=== PATIENT | male | born 1950 | race Caucasian/White ===

== ENCOUNTER → 2016-06-28 | Outpatient (CLI) | payer OTHER ==
--- NOTE | 2016-06-28 12:58 | CR ---
EXAMINATION: Right knee HISTORY: Pain COMPARISON: None TECHNIQUE: 4 views FINDINGS: There is moderate joint space narrowing within the lateral compartment. Moderate osteophyt e formation is noted. No fracture or acute osseous abnormality is demonstrated. There is a small gilson nt effusion noted. IMPRESSION: Moderate degenerative changes noted most prominent within the lateral compartment.
== END | disposition home or self-care (01) ==
LOC: MW.CHORTHO 11:10
PROVIDERS: ATTEND Orthopaedic Surgery
DX: M25.561 Pain in right knee (principal)
CPT/HCPCS: 73564-26-RT; 73564-RT

== ENCOUNTER 2017-04-01 10:07 | Day surgery (SDC) | payer OTHER ==
[~2017-04-01 10:07] MED LIST: Acetaminophen 1,000 MG in Premix Bag 1 BAG IV SCH; Famotidine 20 MG/2 ML SDV IVPUSH SCH; Ketorolac 30 MG/ML SDV IVPUSH SCH; Lidocaine 2% 5 ML SDV ONE; Midazolam 1 MG/ML 2 ML SDV ONE; Propofol 200 MG/20 ML SDV ONE; Ropivacaine 49.25 ML, Ketorolac 30 MG, EPINEPHrine 0.5 MG, cloNIDine 80 MCG in Sodium C... INJECT ONE; Scopolamine 1.5 MG Transdermal Patch TRDERM SCH; ceFAZolin 2 GM in Premix Bag 1 BAG IV SCH; fentaNYL 100 MCG/2 ML SDV ONE; oxyCODONE ER 20 MG TAB.ER PO SCH
[2017-04-01] MEDS: Lactated Ringers 1,000 ML IV SCH ×2 (10:47→14:45)
--- NOTE | 2017-04-01 10:58 | PCM.PREANE ---
Preanesthetic Assessment - Anesthesia/Transfusion/Family Hx Anesthesia History: Prior Anesthesia Without Reaction Family History of Anesthesia Reaction: No Transfusion History: No Prior Transfusion(s) - Review of Systems General: No Symptoms Pulmonary: No Symptoms Cardiovascular: No Symptoms Neurological: Other (dystonic movement disorder) Other: Reports: Depression - Physical Assessment NPO Status Date: 03/31/17 O2 Sat by Pulse Oximetry: 98 Respiratory Rate: 16 Vital Signs: Last Vital Signs Temp 36.2 C 04/01/17 10:29 Pulse 72 04/01/17 10:29 Resp 16 04/01/17 10:29 BP 108/72 04/01/17 10:29 Pulse Ox 98 04/01/17 10:29 Height: 1.78 m Weight: 79.832 kg ASA Class: 3 Mental Status: Alert & Oriented x3 Airway Class: Mallampati = 1 Dentition: Reports: Normal Dentition ROM/Head Extension: Full Lungs: Clear to Auscultation, Normal Respiratory Effort Cardiovascular: Regular Rate, Regular Rhythm - Allergies Allergies/Adverse Reactions: Allergies Allergy/AdvReac Type Severity Reaction Status Date / Time Sulfa (Sulfonamide Allergy Anaphylactic Verified 03/29/17 10:08 Antibiotics) Shock - Blood Blood Available: Yes - Acknowledgements Anesthesia Type Planned: Spinal Pt an Appropriate Candidate for the Planned Anesthesia: Yes Alternatives and Risks of Anesthesia Discussed w Pt/Guardian: Yes Pt/Guardian Understands and Agrees with Anesthesia Plan: Yes Additional Comments: PMH: alcoholism, dry for 3 months, GERD without sx when on meds, HTN, dystonic movement disorder. PreAnesthesia Questionnaire HEENT History: Reports: Cataract, Macular Degeneration Other HEENT History: wears glasses, has had "shots" in left eye for Macular Degeneration Cardiovascular History: Reports: High Cholesterol, Hypertension Respiratory History: Reports: None Gastrointestinal History: Reports: Chronic Constipation, GERD Other Gastrointestinal History: hx colitis Genitourinary History: Reports: Prostate Disorder Musculoskeletal History: Reports: Arthritis, Fracture Other Musculoskeletal History: hx of fx of right pinky Neurological History: Reports: Seizure, Other (See Below) Other Neuro History: hx of motion sickness, has involuntary movements, hx of seizure 15 years ago after being hospitalized for DT's Psychiatric History: Reports: Anxiety, Depression, PTSD Endocrine/Metabolic History: Reports: None Hematologic History: Reports: None Immunologic History: Reports: None Oncologic (Cancer) History: Reports: None Dermatologic History: Reports: None - Past Surgical History Head Surgeries/Procedures: Reports: None HEENT Surgical History: Reports: Cataract Surgery, Oral Surgery Other HEENT Surgeries/Procedures: has dental posts GI Surgical History: Reports: Colonoscopy Male Surgical History: Reports: Vasectomy Musculoskeletal Surgical History: Reports: Arthroscopic Knee Other Musculoskeletal Surgeries/Procedures:: bilateral - SUBSTANCE USE Smoking Status *Q: Former Smoker Tobacco Use Within Last Twelve Months: No Second Hand Smoke Exposure: No Days Per Week of Alcohol Use: 0 Number of Drinks Per Day: 20 Total Drinks Per Week: 0 Recreational Drug Use History: No Recreational Drug Type: Reports: Other (see below) - HOME MEDS Home Medications: Home Meds Omeprazole [priLOSEC OTC] 40 mg PO BID 03/22/14 [History] PARoxetine [Paxil] 40 mg PO BID 03/22/14 [History] Simvastatin [Zocor] 80 mg PO BEDTIME 03/22/14 [History] Testosterone [Androgel] 1 dose TOP BEDTIME 04/26/14 [History] Doxazosin [Cardura] 2 mg PO DAILY 12/23/15 [History] Docosahexanoic Acid [ Dha] 1 cap PO DAILY 03/29/17 [History] Meloxicam 15 mg PO DAILY 03/29/17 [History] Polyethylene Glycol 3350 1 gm PO DAILY PRN 03/29/17 [History] Vitamin B Complex 1 cap PO DAILY 03/29/17 [History] clonazePAM [Klonopin] 0.5 mg PO BID 03/29/17 [History] - CURRENT (IN HOUSE) MEDS Current Meds: Current Medications Famotidine (Pepcid) 40 mg IVPUSH ONARRIVE [facility] Last Admin: 04/01/17 10:48 Dose: 40 mg Cefazolin Sodium/Dextrose 2 gm (/ Premix) 50 mls @ 100 mls/hr IV ONCALL BRIANA Lactated Ringer's (Ringers, Lactated) 1,000 mls @ 100 mls/hr IV ASDIRECTED [facility] Last Admin: 04/01/17 10:47 Dose: 100 mls/hr Acetaminophen 1,000 mg/ Premix 100 mls @ 400 mls/hr IV ONCALL [facility] Last Admin: 04/01/17 10:50 Dose: 400 mls/hr Ketorolac Tromethamine (Toradol) 30 mg IVPUSH ONARRIVE [facility] Last Admin: 04/01/17 10:49 Dose: 30 mg Oxycodone HCl (Oxycontin) 20 mg PO ONARRIVE [facility] Last Admin: 04/01/17 10:47 Dose: 20 mg Scopolamine (Transderm-Scop) 1.5 mg TRDERM ONARRIVE [facility] Last Admin: 04/01/17 10:48 Dose: 1.5 mg Tranexamic Acid (Cyklokapron) 4,000 mg IV SEECOMMENT [facility] Discontinued Medications Fentanyl (Sublimaze) Confirm Administered Dose 100 mcg .ROUTE .STK-MED ONE Stop: 04/01/17 09:03 Ropivacaine 49.25 ml/Ketorolac Tromethamine 30 mg/Epinephrine HCl 0.5 mg/ Clonidine HCl 80 mcg/ Sodium Chloride 100 mls @ 50 mls/min INJECT ONETIME ONE Stop: 04/01/17 06:01 Lidocaine (Xylocaine-Mpf 2%) Confirm Administered Dose 5 ml .ROUTE .STK-MED ONE Stop: 04/01/17 09:03 Midazolam HCl (Versed 1 Mg/Ml) Confirm Administered Dose 2 mg .ROUTE .STK-MED ONE Stop: 04/01/17 09:03 Propofol (Diprivan 20 Ml) Confirm Administered Dose 400 mg .ROUTE .STK-MED ONE Stop: 04/01/17 09:03 Tranexamic Acid (Cyklokapron) Confirm Administered Dose 4,000 mg .ROUTE .STK- MED ONE Stop: 04/01/17 07:29
[2017-04-01] MEDS ORDERED: ceFAZolin 1 GM Vial ONE (12:13)
[2017-04-01] MEDS ORDERED: Sodium Chloride 0.9% 20 ML ONE (12:13)
[2017-04-01] MEDS ORDERED: Glycopyrrolate 0.2 MG/ML SDV ONE (12:14)
[2017-04-01] MEDS ORDERED: ePHEDrine 50 MG/ML SDV ONE (12:17)
[2017-04-01] MEDS ORDERED: Propofol 200 MG/20 ML SDV ONE ×2 (12:22→13:03)
[2017-04-01] MEDS ORDERED: Phenylephrine/Normal Saline 100 MCG/ML 10 ML Syringe ONE (12:26)
[2017-04-01] MEDS ORDERED: Phenylephrine 1% 10 MG/ML SDV ONE (12:45)
[2017-04-01] MEDS ORDERED: Acetaminophen/HYDROcodone 325-10 MG Tab PO PRN (13:52)
[2017-04-01] MEDS ORDERED: diphenhydrAMINE 25 MG Cap PO PRN (13:52)
[2017-04-01] MEDS ORDERED: Aluminum Hydroxide/Magnesium Hydroxide/Simethicone Susp 30 ML Cup PO PRN (13:52)
[2017-04-01] MEDS ORDERED: Bisacodyl 10 MG Supp RECTAL PRN (13:52)
[2017-04-01] MEDS ORDERED: Ondansetron 4 MG/2 ML SDV IV PRN (13:52)
--- NOTE | 2017-04-01 13:52 | PCM.OPNOTE ---
- General Post-Op/Procedure Note Date of Surgery/Procedure: 04/01/17 Operative Procedure(s): R TKA Post-Op Diagnosis: DJD R knee Anesthesia Technique: Moderate Sedation, Spinal Primary Surgeon: Wilma Flores Carpet Inspector Finished: Alma Larson in mLs: 100 Condition: Good Free Text/Narrative:: tt=14 min #[id number]
[2017-04-01] MEDS ORDERED: Polyethylene Glycol 3350 Powder 17 GM Packet PO PRN (13:56)
[2017-04-01] MEDS ORDERED: Morphine PF 30 MG/30 ML PCA Vial IV SCH (14:00)
--- NOTE | 2017-04-01 14:06 | PCM.POSTAN ---
POST ANESTHESIA ASSESSMENT - MENTAL STATUS Mental Status: Alert, Oriented - RESPIRATORY Respiratory Status: Respiratory Rate WNL, Airway Patent, O2 Saturation Stable - CARDIOVASCULAR CV Status: Pulse Rate WNL, Blood Pressure Stable - GASTROINTESTINAL GI Status: No Symptoms - POST OP HYDRATION Hydration Status: Adequate & Stable
--- NOTE | 2017-04-01 16:25 | PCM.CONS ---
H&P History of Present Illness - General Date of Service: 04/01/17 Admit Problem/Dx: Admission Diagnosis/Problem Admission Diagnosis/Problem Replacement of total knee joint Source of Information: Patient, Old Records History Limitations: Reports: No Limitations - History of Present Illness Initial Comments - Free Text/Narative: This 66 year old male with pmh of HTN, dyslipidemia, and hx of alcohol abuse ( cessation x 3 years) presented to for R TKA with Dr Flores. Hospitalist service consulted for medical management. Beto is back from the OR and doing well. He is resting in bed with family at bedside. He reports he is doing well. Pain to knee is minimal. He denies chest pain or SOB. No concerns at this time. He confirms he has been without alcohol for nearly 3 years, Lee is his 3 year anniversary. 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 He does appear to have some hyperkinetic movements during my interview with him. He reports they are questioning Parkinson disease. He reports he does not take anything for HTN at this time. He typically is constipated, BM every other day with his ulcerative colitis. He does take statin for dyslipidemia. EKG at pre-operative evaluation was SR[facility] Related Data Allergies/Adverse Reactions: Allergies Allergy/AdvReac Type Severity Reaction Status Date / Time Sulfa (Sulfonamide Allergy Anaphylactic Verified 04/01/17 10:56 Antibiotics) Shock Home Medications: Home Meds Omeprazole [priLOSEC OTC] 40 mg PO BID 03/22/14 [History] PARoxetine [Paxil] 40 mg PO BID 03/22/14 [History] Simvastatin [Zocor] 80 mg PO BEDTIME 03/22/14 [History] Testosterone [Androgel] 1 dose TOP BEDTIME 04/26/14 [History] Doxazosin [Cardura] 2 mg PO DAILY 12/23/15 [History] Docosahexanoic Acid [ Dha] 1 cap PO DAILY 03/29/17 [History] Meloxicam 15 mg PO DAILY 03/29/17 [History] Polyethylene Glycol 3350 1 gm PO DAILY PRN 03/29/17 [History] Vitamin B Complex 1 cap PO DAILY 03/29/17 [History] clonazePAM [Klonopin] 0.5 mg PO BID 03/29/17 [History] Past Medical History HEENT History: Reports: Cataract, Macular Degeneration Other HEENT History: wears glasses, has had "shots" in left eye for Macular Degeneration Cardiovascular History: Reports: High Cholesterol, Hypertension Respiratory History: Reports: None. 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 Denies: Diabetes, Type II, Hypothyroidism Hematologic History: Reports: None Immunologic History: Reports: None Oncologic (Cancer) History: Reports: None Dermatologic History: Reports: None - Past Surgical History Head Surgeries/Procedures: Reports: None HEENT Surgical History: Reports: Cataract Surgery, Oral Surgery Other HEENT Surgeries/Procedures: has dental posts GI Surgical History: Reports: Colonoscopy Male Surgical History: Reports: Vasectomy Musculoskeletal Surgical History: Reports: Arthroscopic Knee Other Musculoskeletal Surgeries/Procedures:: bilateral Social & Family History - Family History Family Medical History: Noncontributory - Tobacco Use Smoking Status *Q: Never Smoker Years of Tobacco use: 5 Used Tobacco, but Quit: Yes Month Tobacco Last Used: 15 yrs ago Tobacco Use Comment: quit 20 years ago Second Hand Smoke Exposure: No - Caffeine Use Caffeine Use: Reports: Coffee - Alcohol Use Alcohol Use History: Yes Days Per Week of Alcohol Use: 0 Alcohol Use Comment: Has not used alcohol in nearly 3 years. - Recreational Drug Use Recreational Drug Use: No Drug Use in Last 12 Months: No Recreational Drug Type: Reports: Other (see below) H&P Review of Systems - Review of Systems: Review Of Systems: See Below General: Reports: No Symptoms. Denies: Fever, Chills, Malaise, Weakness Pulmonary: Reports: No Symptoms. Denies: Shortness of Breath Cardiovascular: Reports: No Symptoms. Denies: Chest Pain, Edema, Lightheadedness, Blood Pressure Problem Gastrointestinal: Reports: No Symptoms. Denies: Abdominal Pain, Black Stool, Bloody Stool, Nausea, Vomiting Genitourinary: Reports: No Symptoms. Denies: Dysuria, Frequency, Burning Musculoskeletal: Reports: No Symptoms Psychiatric: Reports: No Symptoms. Denies: Confusion Neurological: Reports: No Symptoms. Denies: Confusion Exam - Exam Exam: See Below - Vital Signs Vital Signs: Last Vital Signs Temp 98.1 F 04/01/17 15:42 Pulse 65 04/01/17 15:42 Resp 16 04/01/17 15:42 BP 113/64 04/01/17 15:42 Pulse Ox 93 L 04/01/17 15:42 Weight: 81.964 kg - Exam General: Alert, Oriented, Cooperative HEENT: Conjunctiva Clear, Hearing Intact, Mucosa Moist & [place], Pupils Reactive Neck: Supple, Trachea Midline, 2 Lungs: Clear to Auscultation, Normal Respiratory Effort Cardiovascular: Regular Rate, Regular Rhythm GI/Abdominal Exam: Normal Bowel Sounds, Soft, Non-Tender, No Organomegaly, No Distention, No Abnormal Bruit, No Mass, Pelvis Stable Extremities: Normal Inspection, Normal Range of Motion, Non-Tender, No Pedal Edema, Normal Capillary Refill Skin: Warm, Dry, Incision (R knee, [place] wrap intact) Neuro Extensive - Mental Status: Alert, Oriented x3, Normal Mood/Affect, Normal Cognition Neuro Extensive - Motor, Sensory, Reflexes: Other (dyskinetic/hyperkinetic movements noted during exam. ) Psychiatric: Alert, Normal Affect, Normal Mood - Patient Data Lab Results Last 24 hrs: Laboratory Results - last 24 hr 04/01/17 Range/Units 10:40 Blood Type A POSITIVE Antibody Screen NEGATIVE Consult PN Assessment/Plan Procedures: Procedures ASSAY CARBOXYHB QUANT (03/22/14) ASSAY OF AMMONIA (03/22/14) ASSAY OF AMYLASE (03/22/14) ASSAY OF LIPASE (03/22/14) ASSAY OF TROPONIN QUANT (03/22/14) ASSAY THYROID STIM HORMONE (12/13/15) BLOOD GASES ANY COMBINATION (03/22/14) BLOOD TYPING SEROLOGIC ABO (03/22/14) BLOOD TYPING SEROLOGIC RH(D) (03/22/14) CHEST X-RAY 1 VIEW FRONTAL (03/22/14) COLONOSCOPY AND BIOPSY (12/27/15) COLONOSCOPY W/ABLATION (07/27/14) COMPLETE CBC W/AUTO DIFF WBC (03/20/17) COMPREHEN METABOLIC PANEL (03/20/17) CT HEAD/BRAIN W/O DYE (03/22/14) ELECTROCARDIOGRAM TRACING (03/20/17) EMERGENCY DEPT VISIT (11/29/15) EMERGENCY DEPT VISIT (04/26/14) EMERGENCY DEPT VISIT (03/25/14) EMERGENCY DEPT VISIT (03/22/14) IMMUNIZATION ADMIN (11/29/15) IRON BINDING TEST (03/22/14) METABOLIC PANEL TOTAL CA (04/26/14) MRI BRAIN STEM W/O & W/DYE (11/25/14) MRI BRAIN STEM W/O DYE (11/07/15) ORGANIC ACID SINGLE QUANT (12/13/15) PROTHROMBIN TIME (03/20/17) ROUTINE VENIPUNCTURE (03/20/17) SYPHILIS TEST NON-TREP QUAL (12/13/15) TDAP VACCINE 7 YRS/> IM (11/29/15) THER/PROPH/DIAG INJ IV PUSH (11/29/15) THER/PROPH/DIAG IV INF INIT (04/26/14) THROMBOPLASTIN TIME PARTIAL (03/20/17) TISSUE EXAM BY PATHOLOGIST (07/27/14) TX/PRO/DX INJ NEW DRUG ADDON (11/29/15) TX/PRO/DX INJ SAME DRUG BRANCH ASSISTANT (04/26/14) URINALYSIS AUTO W/SCOPE (03/20/17) VITAMIN B-12 (12/13/15) WITHDRAWAL OF ARTERIAL BLOOD (03/22/14) X-RAY EXAM CHEST 2 VIEWS (03/20/17) X-RAY EXAM KNEE 4 OR MORE (06/28/16) X-RAY EXAM OF ABDOMEN (03/22/14) X-RAY EXAM OF ANKLE (11/29/15) X-RAY EXAM OF FOOT (11/29/15) X-RAY EXAM OF KNEE 1 OR 2 (11/20/16) (1) S/P total knee arthroplasty SNOMED Code(s): 6206632129424, 3084831626708 Code(s): Z96.659 - PRESENCE OF UNSPECIFIED ARTIFICIAL KNEE JOINT Current Visit: Yes Qualifiers: Laterality: right Qualified Code(s): Z96.651 - Presence of right artificial knee joint (2) History of alcohol abuse SNOMED Code(s): 107945537 Code(s): Z87.898 - PERSONAL HISTORY OF OTHER SPECIFIED CONDITIONS Current Visit: Yes (3) HTN (hypertension) SNOMED Code(s): 08959738 Code(s): I10 - ESSENTIAL (PRIMARY) HYPERTENSION Current Visit: Yes (4) BPH (benign prostatic hyperplasia) SNOMED Code(s): 108661697 Code(s): N40.0 - BENIGN PROSTATIC HYPERPLASIA WITHOUT LOWER URINRY TRACT SYMP Current Visit: Yes (5) Ulcerative colitis SNOMED Code(s): 62518942 Code(s): K51.90 - ULCERATIVE COLITIS, UNSPECIFIED, WITHOUT COMPLICATIONS Current Visit: Yes (6) Hyperkinetic disorder SNOMED Code(s): 141913262 Code(s): F90.9 - ATTENTION-DEFICIT HYPERACTIVITY DISORDER, UNSPECIFIED TYPE Current Visit: Yes Problem List Initiated/Reviewed/Updated: Yes My Orders Last 24 Hours: My Active Orders 04/01/17 16:22 BASIC METABOLIC PANEL,BMP [CHEM] Routine CBC WITH AUTO DIFF [HEME] Routine MG [MAGNESIUM] [CHEM] Routine Plan: This 66 year old male admitted with R TKA, hospitalist service consulted for medical management 1. S/P TKA: Orders per Ortho 2. HTN: Stable Currently not taking any medications. Monitor 3. Dyslipidemia: Stable, continue Statin 4. BPH: Stable, continue Doxazosin and monitor 5. Hx alcoholism: Monitor. No longer drinking alcohol, nearly 3 years sober. VTE prophylaxis: Recommend when deemed appropriate by Ortho.
--- NOTE | 2017-04-01 16:30 | CR ---
EXAMINATION: Right knee HISTORY: TKA COMPARISON: 11/20/2016 TECHNIQUE: 2 views FINDINGS/IMPRESSION: Right total knee hardware is demonstrated in good position and alignment. Postop erative soft tissue changes noted.
[2017-04-01 17:05] LABS: CHLORIDE,CL 106 mmol/L (98-110); SODIUM,NA 139 mmol/L (136-146)
--- NOTE | 2017-04-01 19:17 | OR ---
SURGEON: Wilma Flores MD DATE OF PROCEDURE: 04/01/2017 PREOPERATIVE DIAGNOSIS: Osteoarthritis, right knee, tricompartmental. POSTOPERATIVE DIAGNOSIS: Osteoarthritis, right knee, tricompartmental. PROCEDURE: Right total knee arthroplasty. COTTON GINNER HELPER: Alma Larson PA-C. ANESTHESIA: Spinal with sedation. ESTIMATED BLOOD LOSS: 100 mL. TOURNIQUET TIME: 14 minutes. COMPLICATIONS: None. DVT PROPHYLAXIS: PAS boot and ANASTACIO hose to the nonoperative leg. IMPLANTS USED: Radha Persona femoral component size 10 standard (LPS), tibial component size G, 35 mm all-polyethylene patella, and 10 mm all-polyethylene articular insert. FINDINGS: Showed tricompartmental degenerative changes with grade 4 chondromalacia. Mild osteophyte formation was noted. No excess synovitis was found. BRIEF HISTORY: Beto is a 66-year-old male who has had complaint of progressive right knee pain. He had failed conservative treatment. Due to his lack of response to conservative treatment, I did recommend surgical intervention. The risks and goals of procedure were discussed with the patient and were documented preoperatively. He agreed to proceed. DESCRIPTION OF PROCEDURE: The patient was properly identified and brought to the operating room. The patient was then transferred from the operating room cart and placed on the operating table in a supine position. Anesthesia was administered by the anesthesia staff. After adequate anesthesia was obtained, a well-padded tourniquet was applied to the surgical lower extremity. Gavin catheter was placed. The lower extremity was then prepped in standard fashion using ChloraPrep solution. It was then sterilely draped. A time-out was performed to ensure correct site and procedure. Preoperative antibiotics were given along with one gram tranexamic acid IV. The surgical site had been marked preoperatively. An incision was made over the anterior aspect of the knee. The subcutaneous tissues were dissected down to the level of the fascia. A medial parapatellar approach to the knee was made. A portion of the infrapatellar fat pad was then excised. The distal femur was then exposed. The step reamer was used to gain access to the intramedullary canal. This was placed in 6 degrees of valgus. Pins were placed. The distal femoral cutting block was placed and the distal femoral cut was made. Instrumentation was then removed. The femur was then sized. Both Whitesides' line and the epicondylar axis were then marked with electrocautery. The 4-in-1 cutting block was placed. This was placed in a slightly externally rotated position, which corresponded well with the previously drawn lines. The cutting guide was then pinned into position. An Iggy wing guide was used to check the depth of resection of our anterior condylar cut and it was felt that no notching would occur. The anterior condylar cut was then made followed by the posterior condylar cut. Both the posterior chamfer and anterior chamfer cuts were then made. The cutting block was then removed along with the excess bony remnants. We then turned our attention to the tibia. The anterior cruciate ligament and posterior cruciate ligament were released and a posterior cruciate ligament retractor was placed to allow the tibia to be pulled anteriorly. The tibial extra-medullary guide was then positioned. We chose to take approximately 2 mm off the lowest side. The proximal tibia cutting guide was then placed and screwed into position. The proximal tibial resection was then made with care being taken to protect the patellar tendon. The bony resection was then removed. The remainder of the medial and lateral meniscus were then excised. Care was taken to protect the popliteus tendon. The tibia was then sized to the appropriate size. The distal femur was then elevated. The posterior capsule was stripped off the distal femur both medially and laterally. The posterior capsule along with the medial and lateral gutters were then injected with a standard mixture consisting of clonidine, epinephrine, Toradol, and ropivacaine, unless any allergies were found preoperatively. The femoral component was then placed onto the distal femur in a slightly lateral position. This fit the femur well. A box cut was then made without difficulty. This was then removed. The tibial trial along with the polyethylene liner was then placed. The knee came easily into full extension and was stable to varus and valgus stressing both in full extension and flexion. Any additional releases were performed at this time. We then returned our attention to the patella. The patella was everted and towel clamps were used to hold the patella in position. It was resected to a 15 millimeter thickness. It was then sized to the appropriate size. It was prepared in the usual fashion after placing the predetermined size clamps. This was placed in a slightly superior and medial position. The clamp was then removed. The patellar trial button was placed. The knee was taken through a range of motion using the no-touch technique. The patella tracked centrally. A drop jovanna was then placed to check alignment. All instruments were then removed from the knee. The tibial sizer was then placed on the tibia. The tibia was prepared in the usual fashion using the reamer and broach. This was then removed. All bony surfaces were copiously irrigated with Pulsavac solution. They were then suctioned dry. An Esmarch was used to exsanguinate the right lower extremity and the tourniquet was inflated. Cement was prepared on the back table in the usual manner. Antibiotic impregnated cement was used if the patient was diabetic. Once it was prepared, the bone ends were again suctioned dry. The tibia was cemented into place first. This was malleted into position. Excess cement was then cleared. The femur was then placed in a similar manner. We placed the polyethylene trial into place and the knee was brought into full extension. An axial load was placed while keeping the knee in full extension. The patella button was also cemented into position and the clamp was used to hold this in place as the cement was allowed to cure. The wound was copiously irrigated with saline using a Pulsavac biodiesel production associate. Following this, 1 gram of tranexamic acid was applied topically to the wound during the curing process. After we had adequate curing of the cement, the knee was again taken through a range of motion. The size of the polyethylene was then determined. The polyethylene trial was then removed. The tibial tray was suctioned to make sure there was no remaining soft tissue or cement. Excess cement was cleared from around the edges of the prosthesis as well. The tourniquet was then deflated. We were able to observe for any excess bleeding and none was noted. Electrocautery was used to maintain hemostasis. An additional gram of tranexamic acid was given IV. The retractors were again placed and the predetermined polyethylene was then placed. This was locked into position without difficulty. The knee was again taken through a range of motion with no change from the prior exam. The fascial layer was closed with Number One Vicryl. The subcutaneous tissues were closed with 2-0 Vicryl. The skin was closed with daniel. Xeroform gauze was placed over the wound and a bulky dressing was applied. The patient was then awakened from anesthesia and transferred back to the operating room cart. They were brought to the recovery room in stable condition. All needle and sponge counts were correct. BERTRAM / MIGUEL /[id number] JAYA
[2017-04-01] MEDS ORDERED: ceFAZolin 2 GM in Premix Bag 1 BAG IV SCH (20:00)
[2017-04-01] MEDS ORDERED: Docusate Sodium 100 MG Cap PO SCH (21:00)
[2017-04-01] MEDS ORDERED: TESTOSTERONE TOP SCH (21:00)
[2017-04-01] MEDS ORDERED: ClonazePAM 0.5 MG Tab PO SCH (21:00)
[2017-04-01] MEDS ORDERED: oxyCODONE ER 10 MG TAB.ER PO SCH (21:00)
[2017-04-01] MEDS ORDERED: Omeprazole 20 MG Cap.CR PO SCH (21:00)
[2017-04-01] MEDS ORDERED: PARoxetine 20 MG Tab PO SCH (21:00)
[2017-04-01] MEDS ORDERED: Simvastatin 40 MG Tab PO SCH (21:00)
[2017-04-02] MEDS ORDERED: LORazepam 2 MG/ML MDV IVPUSH ONE (00:30)
[2017-04-02] MEDS ORDERED: Haloperidol Lactate 5 MG/ML SDV IM PRN (01:06)
[2017-04-02 02:20] VITALS: BP 117/58
--- NOTE | 2017-04-02 07:26 | PCM.SN ---
- Free Text/Narrative Note: Unable to enter post-anesthesia note this AM as the patient has left AMA around 0140 this AM per nursing.
--- NOTE | 2017-04-02 08:08 | PCM.SN ---
- Free Text/Narrative Note: Nurse called at 12:30 with report that patient was very anxious and wanted rangel catheter removed. I did give verbal order for rangel to be removed and 1 gram of Ativan to be administered. I did reiterate importance of patient staying until evaluation in the morning. I then stated I would discharge patient first thing in the morning. Upon arrival to round this morning, I was notified that patient left AMA with around 0100.
[2017-04-02] MEDS ORDERED: Aspirin 325 MG Tab PO SCH (09:00)
[2017-04-02] MEDS ORDERED: Doxazosin 2 MG Tab PO SCH (09:00)
[2017-04-02] MEDS ORDERED: Famotidine 20 MG Tab PO SCH (09:00)
[2017-04-02] MEDS ORDERED: DOCOSAHEXANOIC ACID PO SCH (09:00)
== END 2017-04-02 03:02 | disposition home or self-care (01) ==
LOC: MW.SDS 10:07 → EDSTATUS 13:15 → UNDODISIN 04-02 01:40 → MW.SDS 04-02 03:02
PROVIDERS: ATTEND Orthopaedic Surgery
DX: M17.11 Unilateral primary osteoarthritis, right knee (principal); F32.9 Major depressive disorder, single episode, unspecified; I10 Essential (primary) hypertension; K21.9 Gastro-esophageal reflux disease without esophagitis; F41.9 Anxiety disorder, unspecified; E78.5 Hyperlipidemia, unspecified; Z88.2 Allergy status to sulfonamides; Z79.899 Other long term (current) drug therapy; Z87.891 Personal history of nicotine dependence
CPT/HCPCS: 27447; 73560; 80048; 83735; 85025; 86850; 86900; 86901; 88304; 88311; A9270; C1713; C1776; J0171; J0690; J0735; J1885; J2250; J2274; J2370; J2795; J3010; J7050; J7120; 01402; J2704

== ENCOUNTER 2017-04-02 10:46 | Emergency (ER) | payer OTHER ==
[2017-04-02 10:56] VITALS: BP 126/72
[2017-04-02] MEDS ORDERED: Sodium Chloride 0.9% 10 ML Syringe FLUSH PRN (11:08)
[2017-04-02] MEDS ORDERED: Sodium Chloride 0.9% 2.5 ML Syringe FLUSH PRN (11:08)
[2017-04-02] MEDS ORDERED: Ketorolac 30 MG/ML SDV IVPUSH ONE (11:08)
[2017-04-02] MEDS ORDERED: Ondansetron 4 MG/2 ML SDV IVPUSH ONE ×2 (11:09→11:48)
--- NOTE | 2017-04-02 11:09 | EDM.PDOC ---
ED HPI GENERAL MEDICAL PROBLEM - General Chief Complaint: Lower Extremity Injury/Pain Stated Complaint: RIGHT KNEE PAIN Time Seen by Provider: 04/02/17 11:08 Source of Information: Reports: Patient, Family History Limitations: Reports: Altered Mental Status - History of Present Illness INITIAL COMMENTS - FREE TEXT/NARRATIVE: HISTORY AND PHYSICAL: []66-year-old male presenting with pain to his right knee recent total knee yesterday signed himself out of the hospital History of Present Illness: []Patient has multiple twitching really does not know why he is here Review of Systems: As per history of present illness and below otherwise all systems reviewed and negative. Past medical history: As per history of present illness and as reviewed below otherwise noncontributory. Surgical history: As per history of present illness and as reviewed below otherwise noncontributory. Social history: No reported history of drug or alcohol abuse. Family history: As per history of present illness and as reviewed below otherwise noncontributory. Physical exam: Alert gentleman answering questions hesitantly. No shortness of breath noted rating his pain as 10/10. HEENT: Atraumatic, normocehpalic, pupils reactive, negative for conjunctival pallor or scleral icterus, mucous membranes moist, throat clear, neck supple, nontender, trachea midline. Lungs: Clear to auscultation, breath sounds equal bilaterally, chest non tender. Heart: S1S2, regular, negative for clicks, rubs, or JVD. Abdomen: Soft, nondistended, nontender. Negative for masses or hepatossplenmegaly. Negative for costovertebral tenderness. Pelvis: Stable nontender. Genitourinary: Deferred. Rectal: Deferred Extremities: Atraumatic, negative for cords or calf pain. Neurovascular unremarkable. Neuro: Awake, alert, oriented. Cranial nerves II through XII unremarkable. Cerebellum unremarkable. Motor and sensory unremarkable throughout. Exam nonfocal. Toradol was given IV and pain level has not changed remains a 9-12/18. with concerns over patients' depression. He admits to depression and he does see someone in [facility] for this. He is on Paxil 40 mg twice a day. He states that he has had suicidal ideations for the last 10 years has not had a suicidal attempt, or been close to attempt for 3 years. He has no plans at this time. Patient has difficult time recalling past events, however when given time he does give a reasonable answer. Pain level now 0/10. Diagnostics: [] Therapeutics: [Dilaudid 2 mg One liter of fluid normal saline Toradol 30 IV] Impression: [Postoperative pain] Plan: [Discharged to home Prescriptions from Dr. Flores will be given to patient Follow-up with your primary care provider] Follow-up with orthopedics as scheduled Definitive disposition and diagnosis as appropriate pending reevaluation and review of above. Onset: Gradual Duration: Week(s): Location: Reports: Lower Extremity, Right Quality: Reports: Stabbing Severity: Moderate Associated Symptoms: Reports: Confusion Right Knee Pain Score (Numeric/FACES): 9 - Related Data Allergies Allergy/AdvReac Type Severity Reaction Status Date / Time Sulfa (Sulfonamide Allergy Anaphylactic Verified 04/01/17 10:56 Antibiotics) Shock Home Meds: Home Meds Omeprazole [priLOSEC OTC] 40 mg PO BID 03/22/14 [History] PARoxetine [Paxil] 40 mg PO BID 03/22/14 [History] Simvastatin [Zocor] 80 mg PO BEDTIME 03/22/14 [History] Testosterone [Androgel] 1 dose TOP BEDTIME 04/26/14 [History] Doxazosin [Cardura] 2 mg PO DAILY 12/23/15 [History] Docosahexanoic Acid [ Dha] 1 cap PO DAILY 03/29/17 [History] Meloxicam 15 mg PO DAILY 03/29/17 [History] Polyethylene Glycol 3350 1 gm PO DAILY PRN 03/29/17 [History] Vitamin B Complex 1 cap PO DAILY 03/29/17 [History] clonazePAM [Klonopin] 0.5 mg PO BID 03/29/17 [History] Past Medical History HEENT History: Reports: Impaired Vision, Macular Degeneration Other HEENT History: macular degeneration in left eye Cardiovascular History: Reports: High Cholesterol Respiratory History: Reports: None Gastrointestinal History: Reports: Chronic Constipation, GERD, Inflammatory Bowel Disease Other Gastrointestinal History: hx colitis Genitourinary History: Reports: Prostate Disorder Musculoskeletal History: Reports: Arthritis Other Musculoskeletal History: hx of fx of right pinky Neurological History: Reports: Other (See Below) Other Neuro History: hx of motion sickness, hx of seizure 15 years ago after being hospitalized for DT's, 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 Psychiatric History: Reports: Addiction, Anxiety, Depression Endocrine/Metabolic History: Reports: None Hematologic History: Reports: None Immunologic History: Reports: None Oncologic (Cancer) History: Reports: None Dermatologic History: Reports: None - Past Surgical History Head Surgeries/Procedures: Reports: None HEENT Surgical History: Reports: Cataract Surgery GI Surgical History: Reports: Colonoscopy Male Surgical History: Reports: Vasectomy Social & Family History - Family History Family Medical History: Noncontributory - Tobacco Use Smoking Status *Q: Never Smoker Years of Tobacco use: 5 Used Tobacco, but Quit: Yes Month Tobacco Last Used: 15 yrs ago Second Hand Smoke Exposure: No - Caffeine Use Caffeine Use: Reports: Soda - Alcohol Use Days Per Week of Alcohol Use: 0 Number of Drinks Per Day: 20 Total Drinks Per Week: 0 - Recreational Drug Use Recreational Drug Use: No Drug Use in Last 12 Months: No Recreational Drug Type: Reports: Other (see below) Review of Systems - Review of Systems Review Of Systems: ROS reveals no pertinent complaints other than HPI. ED EXAM, GENERAL - Physical Exam Exam: See Below (See dictation) Course - Vital Signs Last Recorded V/S: Last Vital Signs Temp 36.6 C 04/02/17 10:52 Pulse 82 04/02/17 10:52 Resp 18 04/02/17 10:52 BP 126/72 04/02/17 10:52 Pulse Ox 97 04/02/17 10:52 - Orders/Labs/Meds Orders: Active Orders 24 hr Category Date Time Status DRUG SCREEN, URINE [URCHEM] Stat Lab 04/02/17 12:33 Received UA W/MICROSCOPIC [URIN] Stat Lab 04/02/17 12:33 Received Sodium Chloride 0.9% [Saline Flush] Med 04/02/17 11:08 Active 10 ml FLUSH ASDIRECTED PRN Sodium Chloride 0.9% [Saline Flush] Med 04/02/17 11:08 Active 2.5 ml FLUSH ASDIRECTED PRN Saline Lock Insert [OM.PC] Stat Oth 04/02/17 11:09 Ordered Medication Orders Sodium Chloride (Saline Flush) 10 ml FLUSH ASDIRECTED PRN PRN Reason: Keep Vein Open Last Admin: 04/02/17 11:20 Dose: 10 ml Sodium Chloride (Saline Flush) 2.5 ml FLUSH ASDIRECTED PRN PRN Reason: Keep Vein Open Last Admin: 04/02/17 11:20 Dose: 2.5 ml Labs: Laboratory Tests 04/02/17 Range/Units 12:33 Urine Color YELLOW Urine Appearance CLEAR Urine pH 7.0 (5.0-8.0) Ur Specific [place] 1.010 (1.001-1.035) Urine Protein NEGATIVE (NEGATIVE) mg/dL Urine Glucose (UA) NEGATIVE (NEGATIVE) mg/dL Urine Ketones NEGATIVE (NEGATIVE) mg/dL Urine Occult Blood NEGATIVE (NEGATIVE) Urine Nitrite NEGATIVE (NEGATIVE) Urine Bilirubin NEGATIVE (NEGATIVE) Urine Urobilinogen 0.2 (<2.0) EU/dL Ur Leukocyte Esterase NEGATIVE (NEGATIVE) Meds: Medications Generic Name Dose Route Start Last Admin Trade Name Freq PRN Reason Stop Dose Admin Sodium Chloride 10 ml 04/02/17 11:08 04/02/17 11:20 Saline Flush FLUSH 10 ml ASDIRECTED PRN Administration Keep Vein Open Sodium Chloride 2.5 ml 04/02/17 11:08 04/02/17 11:20 Saline Flush FLUSH 2.5 ml ASDIRECTED PRN Administration Keep Vein Open Discontinued Medications Generic Name Dose Route Start Last Admin Trade Name Freq PRN Reason Stop Dose Admin Hydromorphone HCl 2 mg 04/02/17 11:48 04/02/17 11:55 Dilaudid IVPUSH 04/02/17 11:49 Not Given ONETIME ONE Hydromorphone HCl 2 mg 04/02/17 12:00 04/02/17 11:55 Dilaudid IVPUSH 04/02/17 12:01 2 mg ONETIME ONE Administration Sodium Chloride 1,000 mls @ 999 mls/hr 04/02/17 11:49 04/02/17 11:50 Normal Saline IV 04/02/17 12:49 999 mls/hr STAT ONE Administration Ketorolac Tromethamine 30 mg 04/02/17 11:08 04/02/17 11:19 Toradol IVPUSH 04/02/17 11:09 30 mg ONETIME ONE Administration Ondansetron HCl 4 mg 04/02/17 11:09 04/02/17 11:19 Zofran IVPUSH 04/02/17 11:10 4 mg ONETIME ONE Administration Ondansetron HCl 4 mg 04/02/17 11:48 04/02/17 11:56 Zofran IVPUSH 04/02/17 11:49 Not Given ONETIME ONE Departure - Departure Time of Disposition: 12:59 Disposition: Home, Self-Care 01 Condition: Good Clinical Impression: Postoperative pain of right knee - Discharge Information Referrals: PCP,Unknown [Primary Care Provider] - Forms: ED Department Discharge Additional Instructions: The following information is given to patients seen in the emergency department who are being discharged to home. This information is to outline your options for follow-up care. We provide all patients seen in our emergency department with a follow-up referral. The need for follow-up, as well as the timing and circumstances, are variable depending upon the specifics of your emergency department visit. If you don't have a primary care physician on staff, we will provide you with a referral. We always advise you to contact your personal physician following an emergency department visit to inform them of the circumstance of the visit and for follow-up with them and/or the need for any referrals to a consulting specialist. The emergency department will also refer you to a specialist when appropriate. This referral assures that you have the opportunity for followup care with a specialist. All of these measure are taken in an effort to provide you with optimal care, which includes your followup. Under all circumstances we always encourage you to contact your private physician who remains a resource for coordinating your care. When calling for followup care, please make the office aware that this follow-up is from your recent emergency room visit. If for any reason you are refused follow-up, please contact the [facility] emergency department at and asked to speak to the emergency department charge nurse. Prescriptions that were written by Dr. Wilma Flores has been given to the patient Follow-up with orthopedics as scheduled Follow-up with your primary care provider - My Orders Last 24 Hours: My Active Orders 04/02/17 11:08 Sodium Chloride 0.9% [Saline Flush] 10 ml FLUSH ASDIRECTED PRN Sodium Chloride 0.9% [Saline Flush] 2.5 ml FLUSH ASDIRECTED PRN 04/02/17 11:09 Saline Lock Insert [OM.PC] Stat 04/02/17 12:33 DRUG SCREEN, URINE [URCHEM] Stat UA W/MICROSCOPIC [URIN] Stat - Assessment/Plan Last 24 Hours: My Active Orders 04/02/17 11:08 Sodium Chloride 0.9% [Saline Flush] 10 ml FLUSH ASDIRECTED PRN Sodium Chloride 0.9% [Saline Flush] 2.5 ml FLUSH ASDIRECTED PRN 04/02/17 11:09 Saline Lock Insert [OM.PC] Stat 04/02/17 12:33 DRUG SCREEN, URINE [URCHEM] Stat UA W/MICROSCOPIC [URIN] Stat
[2017-04-02] MEDS ORDERED: HYDROmorphone 2 MG/ML SDV IVPUSH ONE (11:48)
[2017-04-02] MEDS ORDERED: Sodium Chloride 0.9% 1,000 ML IV ONE (11:49)
[2017-04-02] MEDS ORDERED: HYDROmorphone 2 MG/ML Syringe IVPUSH ONE (12:00)
== END 2017-04-02 13:34 | disposition home or self-care (01) ==
LOC: MW.ED 10:46
DX: G89.18 Other acute postprocedural pain (principal); M25.561 Pain in right knee; K21.9 Gastro-esophageal reflux disease without esophagitis; E78.00 Pure hypercholesterolemia, unspecified; Z88.2 Allergy status to sulfonamides; Z79.899 Other long term (current) drug therapy
CPT/HCPCS: 80305; 81001; 96361; 96374; 96375; 99283; J1170; J1885; J2405; J7040; 99284

== ENCOUNTER 2017-12-13 10:02 | Day surgery (SDC) | payer OTHER ==
[~2017-12-13 10:02] MED LIST changes: -Acetaminophen 1,000 MG in Premix Bag 1 BAG IV SCH; -Famotidine 20 MG/2 ML SDV IVPUSH SCH; -Ketorolac 30 MG/ML SDV IVPUSH SCH; +Lactated Ringers 1,000 ML IV SCH; -Lidocaine 2% 5 ML SDV ONE; -Midazolam 1 MG/ML 2 ML SDV ONE; -Propofol 200 MG/20 ML SDV ONE; -Ropivacaine 49.25 ML, Ketorolac 30 MG, EPINEPHrine 0.5 MG, cloNIDine 80 MCG in Sodium C... INJECT ONE; -Scopolamine 1.5 MG Transdermal Patch TRDERM SCH; -ceFAZolin 2 GM in Premix Bag 1 BAG IV SCH; -fentaNYL 100 MCG/2 ML SDV ONE; -oxyCODONE ER 20 MG TAB.ER PO SCH
--- NOTE | 2017-12-13 11:34 | PCM.PREANE ---
Preanesthetic Assessment - Anesthesia/Transfusion/Family Hx Anesthesia History: Prior Anesthesia Without Reaction Other Type of Anesthesia Reaction Comment: states was very confused after his TKA, left the hospital AMA Family History of Anesthesia Reaction: No Transfusion History: No Prior Transfusion(s) - Review of Systems General: No Symptoms Pulmonary: No Symptoms Cardiovascular: No Symptoms Neurological: No Symptoms Other: Reports: None - Physical Assessment NPO Status Date: 12/12/17 O2 Sat by Pulse Oximetry: 96 Respiratory Rate: 16 Vital Signs: Last Vital Signs Temp 36.8 C 12/13/17 11:07 Pulse 67 12/13/17 11:07 Resp 16 12/13/17 11:07 BP 137/75 12/13/17 11:07 Pulse Ox 96 12/13/17 11:07 Height: 1.78 m Weight: 73.936 kg ASA Class: 2 Mental Status: Alert & Oriented x3 Airway Class: Mallampati = 2 ROM/Head Extension: Full Lungs: Clear to Auscultation, Normal Respiratory Effort Cardiovascular: Regular Rate, Regular Rhythm - Allergies Allergies/Adverse Reactions: Allergies Allergy/AdvReac Type Severity Reaction Status Date / Time Sulfa (Sulfonamide Allergy Anaphylactic Verified 12/11/17 10:25 Antibiotics) Shock - Anesthesia Plan Pre-Op Medication Ordered: None - Acknowledgements Anesthesia Type Planned: MAC Pt an Appropriate Candidate for the Planned Anesthesia: Yes Alternatives and Risks of Anesthesia Discussed w Pt/Guardian: Yes Pt/Guardian Understands and Agrees with Anesthesia Plan: Yes Additional Comments: PMH: ulcerative colitis, s/p TKA, anx/sep, hx of alcohol withdrawl seizure, in sustained sobriety x 4 years. PreAnesthesia Questionnaire HEENT History: Reports: Cataract, Macular Degeneration Other HEENT History: recently had 8 teeth pulled Cardiovascular History: Reports: High Cholesterol Respiratory History: Reports: Sleep Apnea Other Respiratory History: has a CPAP but doesn't use it Gastrointestinal History: Reports: Chronic Constipation, Colon Polyp, Inflammatory Bowel Disease, PUD Other Gastrointestinal History: hx colitis Genitourinary History: Reports: UTI, Recurrent Musculoskeletal History: Reports: Arthritis, Back Pain, Chronic, Fracture Other Musculoskeletal History: hx of fx clavicle and finger Neurological History: Reports: Seizure, Other (See Below) Other Neuro History: 15 years ago, passed out while deep breathing (?seizure), 1 month ago, fell asleep while standing up and fell on floor, has been suddenly falling asleep since- some trouble with motion sickness Psychiatric History: Reports: Addiction, Anxiety, Depression, PTSD Endocrine/Metabolic History: Reports: None Hematologic History: Reports: None Immunologic History: Reports: None Oncologic (Cancer) History: Reports: None Dermatologic History: Reports: None - Past Surgical History Head Surgeries/Procedures: Reports: None HEENT Surgical History: Reports: Cataract Surgery, Detached Retina Other HEENT Surgeries/Procedures: has dental posts GI Surgical History: Reports: Colonoscopy, EGD Male Surgical History: Reports: Vasectomy Musculoskeletal Surgical History: Reports: Knee Replacement Other Musculoskeletal Surgeries/Procedures:: bilateral - SUBSTANCE USE Smoking Status *Q: Never Smoker Recreational Drug Use History: No - HOME MEDS Home Medications: Home Meds Omeprazole [priLOSEC OTC] 40 mg PO BID 03/22/14 [History] PARoxetine [Paxil] 40 mg PO BID 03/22/14 [History] Simvastatin [Zocor] 80 mg PO BEDTIME 03/22/14 [History] Testosterone [Androgel] 1 dose TOP BEDTIME 04/26/14 [History] Doxazosin [Cardura] 2 mg PO BEDTIME 12/23/15 [History] ClonazePAM [KlonoPIN] 0.5 mg PO BID 12/11/17 [History] - CURRENT (IN HOUSE) MEDS Current Meds: Current Medications Lactated Ringer's (Ringers, Lactated) 1,000 mls @ 125 mls/hr IV ASDIRECTED [facility]
[2017-12-13] MEDS ORDERED: fentaNYL 100 MCG/2 ML SDV ONE (12:00)
[2017-12-13] MEDS ORDERED: Propofol 200 MG/20 ML SDV ONE ×2 (12:01→13:19)
[2017-12-13] MEDS ORDERED: Midazolam 1 MG/ML 2 ML SDV ONE (12:06)
--- NOTE | 2017-12-13 13:42 | PCM.OPNOTE ---
- General Post-Op/Procedure Note Date of Surgery/Procedure: 12/13/17 Operative Procedure(s): colonoscopy w bx Findings: see dict [id number] Pre Op Diagnosis: wt loss and UC Post-Op Diagnosis: Same Anesthesia Technique: Moderate Sedation Primary Surgeon: Carlos Hinton Pathology: random colon bx Complications: None Condition: Good
--- NOTE | 2017-12-13 14:41 | PCM48HPAN ---
Post Anesthesia Note - EVALUATION WITHIN 48HRS OF ANESTHETIC Vital Signs in Normal Range: Yes Patient Participated in Evaluation: Yes Respiratory Function Stable: Yes Airway Patent: Yes Cardiovascular Function Stable: Yes Hydration Status Stable: Yes Pain Control Satisfactory: Yes Nausea and Vomiting Control Satisfactory: Yes Mental Status Recovered: Yes Resp Rate: 11
--- NOTE | 2017-12-13 15:08 | OR ---
SURGEON: Carlos Hinton MD DATE OF PROCEDURE: 12/13/2017 PREOPERATIVE DIAGNOSIS: Weight loss with ulcerative colitis. POSTOPERATIVE DIAGNOSIS: Weight loss with ulcerative colitis. PROCEDURE PERFORMED: Colonoscopy with biopsy. COMPLICATIONS: None. PROCEDURE IN DETAIL: The patient was taken to the endoscopy room. A time out was called, patient identified, and procedure identified. Diprivan was then administrated. Patient went from awake to sleep, hearing doctor talking or door closing is normal. Perineum inspection and digital examination were then performed. A well- lubricated colonoscope was gently inserted through the rectum, advanced past the rectosigmoid junction, the descending colon, splenic flexure, transverse colon, hepatic flexure, ascending colon, arrived to the cecum. Cecum was identified as dictated in the finding. Then the scope was carefully withdrawn while attention was paid to the mucosal surface for any abnormality. Air will be sucked out during the scope withdrawal. At the rectum, retroflexed to examine any rectal diseases, fistula or hemorrhoids. During mucosal examination, abnormality or polyp was noted; picture taken and biopsy performed. Patient tolerated procedure well. There were no intraoperative complications, and Dr. Hinton was present throughout the whole procedure. FINDINGS: 1. The patient is easily sedated with NEEDLEWORKER and Diprivan. The patient is soundly snoring. 2. Bowel prep is very pretty, but the mucosa is clear, but there is a lot of solid vegetable in the liquid stool and clogged up the scope, you cannot even suck it up, makes the study compromise. The sigmoid was very redundant and cecum indicated by ileocecal fold, one-to-one indentation, light emittance were observed and appendiceal orifice is not observed. Mucosa examined upon scope pulling out with constant irrigation and the patient's colon has lost the regular haustra of the colon and instead it looked like a small bowel kind of like straight, like a lead pipe consistent with colonic colitis. There is no focal inflammation of colitis from the study, but again as I said, it looked like chronic colitis. Random biopsy was done on the right colon, the left colon, and on the transverse colon. There was no polyp, mass, growth, diverticulosis, blood ulcer observed, and the patient has mild internal hemorrhoids, no external hemorrhoids. The patient was subject to another 18- to 24-month surveillance colonoscopy because of diagnosed ulcerative colitis or if clinically indicated otherwise. ABDIAZIZ / MIGUEL /[id number] JAYA
[2017-12-13 15:50] VITALS: BP 118/72
== END 2017-12-13 14:33 | disposition home or self-care (01) ==
LOC: MW.SDS 10:02
PROVIDERS: ATTEND Surgery
DX: K51.90 Ulcerative colitis, unspecified, without complications (principal); K64.8 Other hemorrhoids; M19.90 Unspecified osteoarthritis, unspecified site; F32.9 Major depressive disorder, single episode, unspecified; Z79.899 Other long term (current) drug therapy; Z88.2 Allergy status to sulfonamides; Z87.891 Personal history of nicotine dependence; Z98.890 Other specified postprocedural states
CPT/HCPCS: 43239; J2250; J2704; J3010; 00811; 88305

== ENCOUNTER 2019-03-12 17:29 | Observation (INO) | payer OTHER ==
--- NOTE | 2019-03-12 19:22 | EDM.PDOCBH ---
ED HPI GENERAL MEDICAL PROBLEM - General Chief Complaint: Behavioral/Psych Stated Complaint: MENTAL EVAL Time Seen by Provider: 03/12/19 19:17 Source of Information: Reports: Patient, Family History Limitations: Reports: Altered Mental Status - History of Present Illness INITIAL COMMENTS - FREE TEXT/NARRATIVE: This is a 68-year-old male who presents to the emergency room after seeing multiple people from [place], out of his wall . The patient has been going down over the last month seeing different people come out of his [place] and sleeping outside in his car. Has a history of alcohol abuse. Patient is not combative and pleasant Onset: Gradual Duration: Week(s):, Getting Worse Severity: Moderate Improves with: Reports: None Worsens with: Reports: None Associated Symptoms: Reports: No Other Symptoms - Related Data Allergies Allergy/AdvReac Type Severity Reaction Status Date / Time Sulfa (Sulfonamide Allergy Anaphylactic Verified 03/12/19 18:02 Antibiotics) Shock Home Meds: Home Meds Omeprazole [priLOSEC OTC] 40 mg PO BID 03/22/14 [History] PARoxetine [Paxil] 40 mg PO BID 03/22/14 [History] Simvastatin [Zocor] 80 mg PO BEDTIME 03/22/14 [History] Doxazosin [Cardura] 2 mg PO BEDTIME 12/23/15 [History] ClonazePAM [KlonoPIN] 0.5 mg PO BID 12/11/17 [History] ClonazePAM [KlonoPIN] 0.5 mg PO ASDIRECTED 03/12/19 [History] Gabapentin [Neurontin] 300 mg PO TID 03/12/19 [History] Past Medical History HEENT History: Reports: Cataract, Macular Degeneration Other HEENT History: recently had 8 teeth pulled Cardiovascular History: Reports: High Cholesterol Respiratory History: Reports: Sleep Apnea Other Respiratory History: has a CPAP but doesn't use it Gastrointestinal History: Reports: Chronic Constipation, Colon Polyp, Inflammatory Bowel Disease, PUD Other Gastrointestinal History: hx colitis Genitourinary History: Reports: UTI, Recurrent Musculoskeletal History: Reports: Arthritis, Back Pain, Chronic, Fracture Other Musculoskeletal History: hx of fx clavicle and finger Neurological History: Reports: Seizure, Other (See Below) Other Neuro History: 15 years ago, passed out while deep breathing (?seizure), 1 month ago, fell asleep while standing up and fell on floor, has been suddenly falling asleep since- some trouble with motion sickness Psychiatric History: Reports: Addiction, Anxiety, Depression, PTSD Endocrine/Metabolic History: Reports: None Hematologic History: Reports: None Immunologic History: Reports: None Oncologic (Cancer) History: Reports: None Dermatologic History: Reports: None - Infectious Disease History Infectious Disease History: Reports: Measles, Mumps - Past Surgical History Head Surgeries/Procedures: Reports: None HEENT Surgical History: Reports: Cataract Surgery, Detached Retina Other HEENT Surgeries/Procedures: has dental posts GI Surgical History: Reports: Colonoscopy, EGD Male Surgical History: Reports: Vasectomy Musculoskeletal Surgical History: Reports: Knee Replacement Other Musculoskeletal Surgeries/Procedures:: bilateral Social & Family History - Family History Family Medical History: Noncontributory - Tobacco Use Smoking Status *Q: Never Smoker - Caffeine Use Caffeine Use: Reports: Soda - Recreational Drug Use Recreational Drug Use: No ED ROS GENERAL - Review of Systems Review Of Systems: Comprehensive ROS is negative, except as noted in HPI. Constitutional: Reports: No Symptoms HEENT: Reports: No Symptoms Respiratory: Reports: No Symptoms Cardiovascular: Reports: No Symptoms Endocrine: Reports: No Symptoms GI/Abdominal: Reports: No Symptoms : Reports: No Symptoms Musculoskeletal: Reports: No Symptoms Skin: Reports: No Symptoms Neurological: Reports: No Symptoms Psychiatric: Reports: Hallucinations Hematologic/Lymphatic: Reports: No Symptoms Immunologic: Reports: No Symptoms ED EXAM, BEHAVIORAL HEALTH - Physical Exam Exam: See Below Exam Limited By: No Limitations General Appearance: Alert, WD/WN, No Apparent Distress Eye Exam: Right Eye: PERRL, Bilateral Eye: Normal Fundi Ears: Normal External Exam, Normal Canal, Hearing Grossly Normal, Normal TMs Nose: Normal Inspection, Normal Mucosa, No Blood Throat/Mouth: Normal Inspection, Normal Lips, Normal Teeth, Normal Gums, Normal Oropharynx, Normal Voice, No Airway Compromise Head: Atraumatic, Normocephalic Neck: Normal Inspection, Supple, Non-Tender, Full Range of Motion Respiratory/Chest: No Respiratory Distress, Lungs Clear, Normal Breath Sounds, No Accessory Muscle Use Cardiovascular: Normal Peripheral Pulses, Regular Rate, Rhythm, No Edema GI/Abdominal: Normal Bowel Sounds, Soft, Non-Tender, No Organomegaly, No Distention, No Abnormal Bruit, No Mass, Pelvis Stable (Male) Exam: Deferred Rectal (Males) Exam: Deferred Extremities: Normal Inspection, Normal Range of Motion, No Pedal Edema, Normal Capillary Refill Neurological: Alert, Normal Mood/Affect, CN II-XII Intact, Normal Cognition, Normal Gait, Normal Reflexes, No Motor/Sensory Deficits, Disoriented to Place EKG INTERPRETATION [place]: Normal QRS: Normal ST-T: Normal QT: Normal COURSE, BEHAVIORAL HEALTH COMP - Course Vital Signs: Last Vital Signs Temp 98.9 F 03/12/19 17:59 Pulse 81 03/12/19 17:59 Resp 18 03/12/19 17:59 BP 146/83 H 03/12/19 17:59 Pulse Ox 93 L 03/12/19 17:59 Orders, Labs, Meds: Active Orders 24 hr Category Date Time Status EKG 12 Lead [EKG Documentation Completion] [RC] STAT Care 03/12/19 22:55 Active Laboratory Tests 03/12/19 03/12/19 03/12/19 Range/Units 19:22 19:22 19:22 WBC 6.54 (4.0-11.0) K/uL RBC 4.35 L (4.50-5.90) M/uL Hgb 12.2 L (13.0-17.0) g/dL Hct 36.8 L (38.0-50.0) % MCV 84.6 (80.0-98.0) fL MCH 28.0 (27.0-32.0) pg MCHC 33.2 (31.0-37.0) g/dL RDW Std Deviation 45.8 (28.0-62.0) fl RDW Coeff of Darren 15 (11.0-15.0) % Plt Count 208 (150-400) K/uL MPV 11.00 (7.40-12.00) fL Neut % (Auto) 61.6 (48.0-80.0) % Lymph % (Auto) 25.5 (16.0-40.0) % [place] % (Auto) 10.7 (0.0-15.0) % Eos % (Auto) 1.7 (0.0-7.0) % Baso % (Auto) 0.5 (0.0-1.5) % Neut # (Auto) 4.0 (1.4-5.7) K/uL Lymph # (Auto) 1.7 (0.6-2.4) K/uL [place] # (Auto) 0.7 (0.0-0.8) K/uL Eos # (Auto) 0.1 (0.0-0.7) K/uL Baso # (Auto) 0.0 (0.0-0.1) K/uL Nucleated RBC % 0.0 /100WBC Nucleated RBCs # 0 K/uL D-Dimer, Quantitative 0.50 (0.0-0.50) mg/L FEU Sodium 137 (136-148) mmol/L Potassium 3.9 (3.5-5.1) mmol/L Chloride 100 (98-107) mmol/L Carbon Dioxide 24.8 (21.0-32.0) mmol/L BUN 14 (7.0-18.0) mg/dL Creatinine 0.9 (0.8-1.3) mg/dL Est Cr Clr Drug Dosing 82.88 mL/min Estimated GFR (MDRD) > 60.0 ml/min Glucose 94 (74-106) mg/dL Calcium 8.8 (8.5-10.1) mg/dL Total Bilirubin 0.4 (0.2-1.0) mg/dL AST 40 H (15-37) IU/L ALT 31 (14-63) IU/L Alkaline Phosphatase 109 (46-116) U/L Total Protein 7.3 (6.4-8.2) g/dL Albumin 4.1 (3.4-5.0) g/dL Globulin 3.2 (2.6-4.0) g/dL Albumin/Globulin Ratio 1.3 (0.9-1.6) TSH 3rd Generation 1.98 (0.36-3.74) uIU/mL Urine Color Urine Appearance Urine pH (5.0-8.0) Ur Specific [place] (1.001-1.035) Urine Protein (NEGATIVE) mg/dL Urine Glucose (UA) (NEGATIVE) mg/dL Urine Ketones (NEGATIVE) mg/dL Urine Occult Blood (NEGATIVE) Urine Nitrite (NEGATIVE) Urine Bilirubin (NEGATIVE) Urine Urobilinogen (<2.0) EU/dL Ur Leukocyte Esterase (NEGATIVE) Urine RBC (0-2/HPF) Urine WBC (0-5/HPF) Ur Epithelial Cells (NONE-FEW) Amorphous Sediment (NEGATIVE) Urine Bacteria (NEGATIVE) Salicylates 0.7 (0-20) mg/dL Urine Opiates Screen (NEGATIVE) Ur Oxycodone Screen (NEGATIVE) Urine Methadone Screen (NEGATIVE) Acetaminophen <2.0 ug/mL Ur Barbiturates Screen (NEGATIVE) Ur Phencyclidine Scrn (NEGATIVE) Ur Amphetamine Screen (NEGATIVE) U Methamphetamines Scrn (NEGATIVE) U Benzodiazepines Scrn (NEGATIVE) U Cocaine Metab Screen (NEGATIVE) U Marijuana (THC) Screen (NEGATIVE) Ethyl Alcohol < 3.0 mg/dL 03/12/19 03/12/19 Range/Units 21:20 21:20 WBC (4.0-11.0) K/uL RBC (4.50-5.90) M/uL Hgb (13.0-17.0) g/dL Hct (38.0-50.0) % MCV (80.0-98.0) fL MCH (27.0-32.0) pg MCHC (31.0-37.0) g/dL RDW Std Deviation (28.0-62.0) fl RDW Coeff of Darren (11.0-15.0) % Plt Count (150-400) K/uL MPV (7.40-12.00) fL Neut % (Auto) (48.0-80.0) % Lymph % (Auto) (16.0-40.0) % Boyd % (Auto) (0.0-15.0) % Eos % (Auto) (0.0-7.0) % Baso % (Auto) (0.0-1.5) % Neut # (Auto) (1.4-5.7) K/uL Lymph # (Auto) (0.6-2.4) K/uL Boyd # (Auto) (0.0-0.8) K/uL Eos # (Auto) (0.0-0.7) K/uL Baso # (Auto) (0.0-0.1) K/uL Nucleated RBC % /100WBC Nucleated RBCs # K/uL D-Dimer, Quantitative (0.0-0.50) mg/L FEU Sodium (136-148) mmol/L Potassium (3.5-5.1) mmol/L Chloride (98-107) mmol/L Carbon Dioxide (21.0-32.0) mmol/L BUN (7.0-18.0) mg/dL Creatinine (0.8-1.3) mg/dL Est Cr Clr Drug Dosing mL/min Estimated GFR (MDRD) ml/min Glucose (74-106) mg/dL Calcium (8.5-10.1) mg/dL Total Bilirubin (0.2-1.0) mg/dL AST (15-37) IU/L ALT (14-63) IU/L Alkaline Phosphatase (46-116) U/L Total Protein (6.4-8.2) g/dL Albumin (3.4-5.0) g/dL Globulin (2.6-4.0) g/dL Albumin/Globulin Ratio (0.9-1.6) TSH 3rd Generation (0.36-3.74) uIU/mL Urine Color YELLOW Urine Appearance CLEAR Urine pH 5.5 (5.0-8.0) Ur Specific [place] 1.020 (1.001-1.035) Urine Protein NEGATIVE (NEGATIVE) mg/dL Urine Glucose (UA) NEGATIVE (NEGATIVE) mg/dL Urine Ketones NEGATIVE (NEGATIVE) mg/dL Urine Occult Blood TRACE-INTACT H (NEGATIVE) Urine Nitrite NEGATIVE (NEGATIVE) Urine Bilirubin NEGATIVE (NEGATIVE) Urine Urobilinogen 0.2 (<2.0) EU/dL Ur Leukocyte Esterase NEGATIVE (NEGATIVE) Urine RBC NONE SEEN (0-2/HPF) Urine WBC 0-2 (0-5/HPF) Ur Epithelial Cells RARE (NONE-FEW) Amorphous Sediment LIGHT (NEGATIVE) Urine Bacteria FEW (NEGATIVE) Salicylates (0-20) mg/dL Urine Opiates Screen NEGATIVE (NEGATIVE) Ur Oxycodone Screen NEGATIVE (NEGATIVE) Urine Methadone Screen NEGATIVE (NEGATIVE) Acetaminophen ug/mL Ur Barbiturates Screen NEGATIVE (NEGATIVE) Ur Phencyclidine Scrn NEGATIVE (NEGATIVE) Ur Amphetamine Screen NEGATIVE (NEGATIVE) U Methamphetamines Scrn NEGATIVE (NEGATIVE) U Benzodiazepines Scrn NEGATIVE (NEGATIVE) U Cocaine Metab Screen NEGATIVE (NEGATIVE) U Marijuana (THC) Screen NEGATIVE (NEGATIVE) Ethyl Alcohol mg/dL Departure - Departure Time of Disposition: 23:24 Disposition: DC/Tfer to Psych Hosp/Unit [facility] Condition: Good Clinical Impression: Altered mental status - Discharge Information Referrals: [facility] [Primary Care Provider] - Forms: ED Department Discharge Sepsis Event Note - Evaluation Sepsis Screening Result: No Definite Risk - Focused Exam Vital Signs: Vital Signs Temp Pulse Resp BP Pulse Ox 03/12/19 17:59 98.9 F 81 18 146/83 H 93 L Date Exam was Performed: 03/12/19 Time Exam was Performed: 23:23 - My Orders Last 24 Hours: My Active Orders 03/12/19 22:55 EKG 12 Lead [EKG Documentation Completion] [RC] STAT - Assessment/Plan Last 24 Hours: My Active Orders 03/12/19 22:55 EKG 12 Lead [EKG Documentation Completion] [RC] STAT
[2019-03-12 20:02] LABS: ACETAMINOPHEN <2.0 ug/mL; BLOOD UREA NITROGEN,BUN 14 mg/dL (7.0-18.0); CARBON DIOXIDE,CO2 24.8 mmol/L (21.0-32.0); CHLORIDE,CL 100 mmol/L (98-107); GLUCOSE RANDOM 94 mg/dL (74-106); POTASSIUM,K 3.9 mmol/L (3.5-5.1); SODIUM,NA 137 mmol/L (136-148)
[2019-03-13] MEDS ORDERED: Thiamine 100 MG Tab PO ONE (00:10)
[2019-03-13] MEDS ORDERED: Folic Acid 1 MG Tab PO ONE (00:10)
[2019-03-13] MEDS ORDERED: LORazepam 2 MG/ML SDV IVPUSH PRN (00:10)
[2019-03-13] MEDS: Omeprazole 20 MG Cap.CR PO SCH ×2 (02:04→09:09)
[2019-03-13 09:08] VITALS: BP 133/76; PULSE 65
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
== END 2019-03-13 10:20 ==
LOC: MW.ED 17:29 → MW.ICU 23:48
PROVIDERS: ADMIT Internal Medicine; ATTEND Internal Medicine
DX: F23 Brief psychotic disorder (principal); I10 Essential (primary) hypertension; E78.00 Pure hypercholesterolemia, unspecified; G47.30 Sleep apnea, unspecified; F41.9 Anxiety disorder, unspecified; F32.9 Major depressive disorder, single episode, unspecified; M19.90 Unspecified osteoarthritis, unspecified site; Z88.2 Allergy status to sulfonamides; Z79.899 Other long term (current) drug therapy
CPT/HCPCS: 36415; 80053; 80305; 80320; 80329; 81001; 84443; 85025; 85379; 93005; 99285; A9270; G0378; 99283; G0480

== ENCOUNTER 2019-03-27 16:06 | Emergency (ER) | payer OTHER ==
--- NOTE | 2019-03-27 17:45 | EDM.PDOCBH ---
[facility] GENERAL MEDICAL PROBLEM - General Chief Complaint: Behavioral/Psych Stated Complaint: HALLUCINATION Time Seen by Provider: 03/27/19 17:45 Source of Information: Reports: Patient History Limitations: Reports: No Limitations - History of Present Illness INITIAL COMMENTS - FREE TEXT/NARRATIVE: Patient is a 68-year-old male with a past medical history of alcohol and methamphetamine abuse as well as depression. Patient reports no complaints at this time. [facility] today and was instructed to come to the emergency department. However, patient does not endorse any depression, SI , HI, hallucinations. Patient denies using any drugs or alcohol earlier today. Patient states he feels well and wants to go home. Patient denies any dizziness, palpitations, chest pain, shortness of breath. Patient has no medical complaints at this time either. In addition to that documented in the HPI above, the additional ROS was obtained : Constitutional: Denies fevers or chills Eyes: Denies vision changes ENMT: Denies sore throat CV: Denies chest pain Resp: Denies SOB GI: Denies vomiting or diarrhea : Denies painful urination MSK: Denies recent trauma Skin: Denies new rashes Neuro: Denies new numbness or tingling or weakness Endocrine: Denies unexpected weight loss Heme: Denies bleeding disorders I have reviewed the triage vital signs Const: Well nourished, well developed, appears stated age Eyes: PERRL, no conjunctival injection HENT: NCAT, Neck supple without meningismus CV: RRR, Warm, well-perfused extremities RESP: CTAB, Unlabored respiratory effort GI: soft, non-tender, non-distended, no masses MSK: No gross deformities appreciated Skin: Warm, dry. No rashes Neuro: Alert, shift commander II-XII grossly intact. Sensation and motor function of extremities grossly intact. Psych: Appropriate mood and affect, normal mentation and responding to questions appropriately Assessment and plan Patient is a [age]-year-old male with no medical complaints and is not experiencing any SI or HI. Patient is not clinically intoxicated. Patient be discharged home - Related Data Allergies Allergy/AdvReac Type Severity Reaction Status Date / Time Sulfa (Sulfonamide Allergy Anaphylactic Verified 03/27/19 17:19 Antibiotics) Shock Home Meds: Home Meds Omeprazole [priLOSEC OTC] 20 mg PO BID 03/22/14 [History] PARoxetine [Paxil] 40 mg PO BID 03/22/14 [History] Gabapentin [Neurontin] 100 mg PO TID 03/12/19 [History] Past Medical History HEENT History: Reports: Cataract, Macular Degeneration Other HEENT History: recently had 8 teeth pulled Cardiovascular History: Reports: High Cholesterol Respiratory History: Reports: Sleep Apnea Other Respiratory History: has a CPAP but doesn't use it Gastrointestinal History: Reports: Chronic Constipation, Colon Polyp, Inflammatory Bowel Disease, PUD Other Gastrointestinal History: hx colitis Genitourinary History: Reports: UTI, Recurrent Musculoskeletal History: Reports: Arthritis, Back Pain, Chronic, Fracture Other Musculoskeletal History: hx of fx clavicle and finger Neurological History: Reports: Seizure, Other (See Below) Other Neuro History: 15 years ago, passed out while deep breathing (?seizure), 1 month ago, fell asleep while standing up and fell on floor, has been suddenly falling asleep since- some trouble with motion sickness Psychiatric History: Reports: Addiction, Anxiety, Depression, PTSD, Suicidal Ideation Endocrine/Metabolic History: Reports: None Hematologic History: Reports: None Immunologic History: Reports: None Oncologic (Cancer) History: Reports: None Dermatologic History: Reports: None - Infectious Disease History Infectious Disease History: Reports: None - Past Surgical History Head Surgeries/Procedures: Reports: None HEENT Surgical History: Reports: Cataract Surgery, Detached Retina, Oral Surgery Other HEENT Surgeries/Procedures: has dental posts GI Surgical History: Reports: Colonoscopy, EGD Male Surgical History: Reports: Vasectomy Musculoskeletal Surgical History: Reports: Knee Replacement Other Musculoskeletal Surgeries/Procedures:: bilateral Social & Family History - Family History Family Medical History: Noncontributory - Tobacco Use Smoking Status *Q: Never Smoker - Caffeine Use Caffeine Use: Reports: Soda - Recreational Drug Use Recreational Drug Use: No ED ROS GENERAL - Review of Systems Review Of Systems: See Below ED EXAM, BEHAVIORAL HEALTH - Physical Exam Exam: See Below COURSE, BEHAVIORAL HEALTH COMP - Course Vital Signs: Last Vital Signs Temp 36.6 C 03/27/19 17:16 Pulse 62 03/27/19 18:07 Resp 16 03/27/19 18:07 BP 148/81 H 03/27/19 18:07 Pulse Ox 98 03/27/19 18:07 Departure - Departure Time of Disposition: 19:11 Disposition: Home, Self-Care 01 Clinical Impression: Anxiety - Discharge Information Instructions: Medical Screening Exam Referrals: PCP,None [Primary Care Provider] - Forms: ED Department Discharge Sepsis Event Note - Evaluation Sepsis Screening Result: No Definite Risk - Focused Exam Vital Signs: Vital Signs Temp Pulse Resp BP Pulse Ox 03/27/19 18:07 62 16 148/81 H 98 03/27/19 17:16 36.6 C 129 H 18 141/94 H 92 L Date Exam was Performed: 03/27/19 Time Exam was Performed: 19:09
[2019-03-27 19:21] VITALS: BP 146/80; PULSE 58
== END 2019-03-27 19:20 | disposition home or self-care (01) ==
LOC: MW.ED 16:06
DX: F41.9 Anxiety disorder, unspecified (principal); F32.9 Major depressive disorder, single episode, unspecified; F43.10 Post-traumatic stress disorder, unspecified; Z79.899 Other long term (current) drug therapy
CPT/HCPCS: 99282; 99284

== ENCOUNTER 2019-03-30 20:09 | Emergency (ER) | payer OTHER ==
[2019-03-30 20:23] VITALS: BP 113/87; PULSE 76
--- NOTE | 2019-03-30 20:49 | EDM.PDOC ---
[facility] GENERAL MEDICAL PROBLEM - General Chief Complaint: ENT Problem Stated Complaint: ABCESSED TOOTH Time Seen by Provider: 03/30/19 20:15 Source of Information: Reports: Patient History Limitations: Reports: No Limitations - History of Present Illness INITIAL COMMENTS - FREE TEXT/NARRATIVE: HISTORY OF PRESENT ILLNESS: Patient is a 68-year-old male who presents with dental pain. States that he has partial dentures placed a year and a half ago and since that time he has had pain to his right lower gingival area. Pain is increased over the past 2 days. Has not seen a dentist for this issue. Denies any fevers. No hemoptysis. Swallowing without difficulty. Denies any trauma or injury. No fever, rash, or neck stiffness. No exacerbating or alleviating factors. REVIEW OF SYSTEMS: Other than the symptoms associated with the present events, the following is reported with regard to recent health: General: (-) fever. HENT: (-) congestion. Respiratory: (-) cough. Cardiovascular: (-) chest pain. GI: (-) abdominal pain. : (-) urinary complaints. Musculoskeletal: (-) other aches or pains. Endocrine: (-) generalized weakness. Neurological: (-) localized weakness. Skin: (-) rash PAST MEDICAL HISTORY: reviewed as per nursing notes SOCIAL HISTORY: reviewed as per nursing notes, MEDICATIONS: Per nurse's note ALLERGIES: Per nurse's note, reviewed by me PHYSICAL EXAMINATION: GENERALIZED APPEARANCE: well developed, well nourished in no distress VITAL SIGNS: Per nurse's note, reviewed by me SKIN: Warm, dry; (-) cyanosis; (-) rash. HEAD: (-) scalp swelling, (-) tenderness. no facial cellulitis or crepitus. EYES: (-) conjunctival pallor, (-) scleral icterus. ENMT: (-) stridor; mucous membranes moist. No pharyngeal erythema. Uvula midline. No phonation changes or trismus. Right lower gingival area with erythema and tenderness small area of induration. No active discharge. poor dentition and multiple caries. NECK: (-) tenderness, (-) stiffness, CHEST AND RESPIRATORY: (-) rales, (-) rhonchi, (-) wheezes; breath sounds equal bilaterally. HEART AND CARDIOVASCULAR: (-) irregularity; (-) murmur, (-) gallop. EXTREMITIES: (-) deformity, (-) edema. NEURO AND PSYCH: Alert. Oriented. [place] x 4. gait steady EMERGENCY DEPARTMENT COURSE AND TREATMENT: Patient's condition remained stable during Emergency Department evaluation. Patient presents with acute dentalgia. There is small area of potential indurated abscess on exam. There is no trismus and the patient is tolerating PO fluids. There is no obvious facial cellulitis. A referral was given to a dental clinic/dentist and the patient understands need to follow up in 1-2 days. Instructions were given to return for worsening pain, facial swelling, SOB, or not tolerating fluids. They were discharged with antibiotics and analgesia. PLAN AND FOLLOW-UP: Patient received written and verbal instructions regarding this condition. Return to ED immediately with any new or worsening symptoms. Follow up to be arranged by patient with pcp and dentist in 1-2 days for further evaluation. Given discharge precautions. Patient expressed verbal understanding. Left Lower Oral/Mouth Pain Score (Numeric/FACES): 8 - Related Data Allergies Allergy/AdvReac Type Severity Reaction Status Date / Time Sulfa (Sulfonamide Allergy Anaphylactic Verified 03/30/19 20:19 Antibiotics) Shock Home Meds: Home Meds Omeprazole [priLOSEC OTC] 20 mg PO BID 03/22/14 [History] PARoxetine [Paxil] 40 mg PO BID 03/22/14 [History] Gabapentin [Neurontin] 100 mg PO TID 03/12/19 [History] Ibuprofen [Motrin] 600 mg PO Q6H PRN #20 tab 03/30/19 [Rx] Penicillin V Potassium 500 mg PO Q6HR 7 Days #28 tab 03/30/19 [Rx] Past Medical History HEENT History: Reports: Cataract, Macular Degeneration Other HEENT History: recently had 8 teeth pulled Cardiovascular History: Reports: High Cholesterol Respiratory History: Reports: Sleep Apnea Other Respiratory History: has a CPAP but doesn't use it Gastrointestinal History: Reports: Chronic Constipation, Colon Polyp, Inflammatory Bowel Disease, PUD Other Gastrointestinal History: hx colitis Genitourinary History: Reports: UTI, Recurrent Musculoskeletal History: Reports: Arthritis, Back Pain, Chronic, Fracture Other Musculoskeletal History: hx of fx clavicle and finger Neurological History: Reports: Seizure, Other (See Below) Other Neuro History: 15 years ago, passed out while deep breathing (?seizure), 1 month ago, fell asleep while standing up and fell on floor, has been suddenly falling asleep since- some trouble with motion sickness Psychiatric History: Reports: Addiction, Anxiety, Depression, PTSD, Suicidal Ideation Endocrine/Metabolic History: Reports: None Hematologic History: Reports: None Immunologic History: Reports: None Oncologic (Cancer) History: Reports: None Dermatologic History: Reports: None - Infectious Disease History Infectious Disease History: Reports: Measles - Past Surgical History Head Surgeries/Procedures: Reports: None HEENT Surgical History: Reports: Cataract Surgery, Detached Retina, Oral Surgery Other HEENT Surgeries/Procedures: has dental posts GI Surgical History: Reports: Colonoscopy, EGD Male Surgical History: Reports: Vasectomy Musculoskeletal Surgical History: Reports: Knee Replacement Other Musculoskeletal Surgeries/Procedures:: bilateral Social & Family History - Family History Family Medical History: Noncontributory - Tobacco Use Smoking Status *Q: Former Smoker Used Tobacco, but Quit: Yes Month/Year Tobacco Last Used: 1975 - Caffeine Use Caffeine Use: Reports: Soda - Recreational Drug Use Recreational Drug Use: No ED ROS ENT - Review of Systems Review Of Systems: See Below (see dictation) ED EXAM, ENT - Physical Exam Exam: See Below (see dictation) Course - Vital Signs Last Recorded V/S: Last Vital Signs Temp 97.8 F 03/30/19 20:20 Pulse 76 03/30/19 20:20 Resp 18 03/30/19 20:20 BP 113/87 03/30/19 20:20 Pulse Ox 97 03/30/19 20:20 Departure - Departure Time of Disposition: 20:43 Disposition: Home, Self-Care 01 Condition: Good Clinical Impression: Dentalgia, Dental abscess - Discharge Information *PRESCRIPTION DRUG MONITORING PROGRAM REVIEWED*: Not Applicable *COPY OF PRESCRIPTION DRUG MONITORING REPORT IN PATIENT JAYMIE: Not Applicable Prescriptions: Penicillin V Potassium 500 mg PO Q6HR 7 Days #28 tab Ibuprofen [Motrin] 600 mg PO Q6H PRN #20 tab PRN Reason: Pain Instructions: Dental Abscess, [id number] Referrals: [facility] [Primary Care Provider[facility] - 2 Days Forms: ED Department Discharge Additional Instructions: The following information is given to patients seen in the emergency department who are being discharged to home. This information is to outline your options for follow-up care. We provide all patients seen in our emergency department with a follow-up referral. The need for follow-up, as well as the timing and circumstances, are variable depending upon the specifics of your emergency department visit. If you don't have a primary care physician on staff, we will provide you with a referral. We always advise you to contact your personal physician following an emergency department visit to inform them of the circumstance of the visit and for follow-up with them and/or the need for any referrals to a consulting specialist. The emergency department will also refer you to a specialist when appropriate. This referral assures that you have the opportunity for follow-up care with a specialist. All of these measure are taken in an effort to provide you with optimal care, which includes your follow-up. Under all circumstances we always encourage you to contact your private physician who remains a resource for coordinating your care. When calling for follow-up care, please make the office aware that this follow-up is from your recent emergency room visit. If for any reason you are refused follow-up, please contact the [facility] Emergency Department at and asked to speak to the emergency department charge nurse. Sepsis Event Note - Evaluation Sepsis Screening Result: No Definite Risk - Focused Exam Vital Signs: Vital Signs Temp Pulse Resp BP Pulse Ox 03/30/19 20:20 97.8 F 76 18 113/87 97 Date Exam was Performed: 03/30/19 Time Exam was Performed: 20:53
== END 2019-03-30 21:03 | disposition home or self-care (01) ==
LOC: MW.ED 20:09
DX: K04.7 Periapical abscess without sinus (principal); K02.9 Dental caries, unspecified; K00.7 Teething syndrome; M19.90 Unspecified osteoarthritis, unspecified site; F41.9 Anxiety disorder, unspecified; F32.9 Major depressive disorder, single episode, unspecified; Z87.891 Personal history of nicotine dependence; Z88.2 Allergy status to sulfonamides; Z79.899 Other long term (current) drug therapy
CPT/HCPCS: 99282; 99283

== ENCOUNTER 2020-10-15 19:33 | Emergency (ER) | payer OTHER ==
[2020-10-15] MEDS ORDERED: Ketorolac 60 MG/2 ML SDV IM ONE (22:30)
--- NOTE | 2020-10-15 22:46 | EDM.PDOC ---
ED HPI GENERAL MEDICAL PROBLEM - General Chief Complaint: Upper Extremity Injury/Pain Stated Complaint: FELL Time Seen by Provider: 10/15/20 21:35 Source of Information: Reports: Patient History Limitations: Reports: No Limitations - History of Present Illness INITIAL COMMENTS - FREE TEXT/NARRATIVE: HISTORY AND PHYSICAL: History of present illness: Patient is a next he 10-year-old male who presents to the emergency department with complaints of left thumb thenar pain after working on a pole wagon this evening and missed stepped and fell catching himself with his left hand. The patient did not take any medications nor did put any ice prior to arrival. Patient denies any fever, chills, headache, change in vision, syncope or near syncope. Denies any chest pain, back pain, shortness of breath or cough. Denies any abdominal pain, nausea, vomiting, diarrhea, constipation or dysuria. Has not noted any blood in urine or stool. Patient has been eating and drinking appropri ately. Review of systems: As per history of present illness and below otherwise all systems reviewed and negative. Past medical history: As per history of present illness and as reviewed below otherwise noncontributory. Surgical history: As per history of present illness and as reviewed below otherwise noncontributory. Social history: See social history for further information Family history: As per history of present illness and as reviewed below otherwise noncontributory. Physical exam: General: Well developed and well nourished. Alert and orientated x 3. Nontoxic in appearance and in no acute distress. Vital signs are stable and have been reviewed by me. Nursing notes were reviewed. HEENT: Atraumatic, normocephalic, pupils equal and reactive bilaterally, negative for conjunctival pallor or scleral icterus, mucous membranes moist, TMs normal bilaterally, throat clear, neck supple, nontender, trachea midline. No drooling or trismus noted. No meningeal signs. No hot potato voice noted. Lungs: Clear to auscultation bilaterally. No wheezes, rales, or rhonchi. Chest nontender. Normal work of breathing, no accessory muscles used. Heart: S1S2, regular rate and rhythm without overt murmur, gallops, or rubs. No JVD. No peripheral edema Abdomen: Soft, nondistended, nontender. Normoactive bowel sounds. Negative for masses or costovertebral tenderness. Skin: Intact, warm, dry. No lesions or rashes noted. Hematologic: No petechiae or purpra. Mucosa appropriate color and normal nail bed color and refill. Extremities: Left thumb MIP tenderness with swelling at the thenar. Moves all other extremities per self without difficulty or deficits, negative for cords or calf pain. Neurovascular unremarkable. Neuro: Awake, alert, oriented. Cranial nerves II through XII unremarkable. Cerebellum unremarkable. Motor and sensory unremarkable throughout. Exam nonfocal. Psychiatric: Mood and affect are appropriate. Normal thought process. Answering questions appropriately. Notes: *This patient was seen and evaluated during the 2019 SARS-CoV-2 novel coronavirus pandemic period. Community viral transmission is ongoing at time of this encounter and the emergency department is operating under pandemic response procedures. As stated above the patient is a 70-year-old male that fell this evening striking his left thumb causing pain in his MIP and swelling in the thenar area. I have treated his pain with Toradol 60 mg IM and have ordered an x-ray of his left hand. Still awaiting read of x-ray. Left hand x-ray Impression: No acute fracture subluxation. Degenerative changes as described above. The patient was informed of negative x-ray for fracture. I have informed that he can use Motrin for his discomfort and swelling. The patient states that he is well acquainted with arthritic pain control. The patient is agreeable with the discharge plan. I have talked with the patient about today's findings, in addition to providing specific details for plan of care. Reassessment at the time of disposition demonstrates that the patient is in no acute distress. The patient is stable for discharge, counseling was provided and we discussed in great detail signs and symptoms that would prompt them to return to the Emergency Department. Medication, follow up and supportive care measures were reviewed and discussed. Voices understanding and is agreeable to plan of care. Denies any further questions or concerns at this time. Diagnostics: Left hand x-ray Therapeutics: Toradol 60 mg IM Impression: Contusion Plan: 1. You were evaluated today on an emergent basis. Your thumb swelling and pain was evaluated with a x-ray. And was found not to be fractured but you do have degenerative changes. You can use Motrin for your swelling and discomfort. We treated your pain with a shot of Toradol 60 mg intramuscular. Be sure to follow-up with your primary care as needed. 2. You can alternate Tylenol and ibuprofen as needed for pain and fever management. 3. We encourage you to follow up with your primary care provider and/or recommended specialist in the next few days for re-evaluation and further care/management. 4. If your symptoms should worsen, new symptoms develop or any of the signs and symptoms we discussed should arise please return to the emergency room or call 911 (if needed). Definitive disposition and diagnosis as appropriate pending reevaluation and review of above. Left Lower Wrist Pain Score (Numeric/FACES): 3 - Related Data Allergies Allergy/AdvReac Type Severity Reaction Status Date / Time Sulfa (Sulfonamide Allergy Anaphylactic Verified 03/30/19 20:19 Antibiotics) Shock Home Meds: Home Meds Omeprazole [priLOSEC OTC] 20 mg PO BID 03/22/14 [History] PARoxetine [Paxil] 40 mg PO BID 03/22/14 [History] Gabapentin [Neurontin] 100 mg PO TID 03/12/19 [History] Ibuprofen [Motrin] 600 mg PO Q6H PRN #20 tab 03/30/19 [Rx] Simvastatin 10 mg PO DAILY 10/15/20 [History] Past Medical History HEENT History: Reports: Cataract, Macular Degeneration Other HEENT History: recently had 8 teeth pulled Cardiovascular History: Reports: High Cholesterol Respiratory History: Reports: Sleep Apnea Other Respiratory History: has a CPAP but doesn't use it Gastrointestinal History: Reports: Chronic Constipation, Colon Polyp, Inflammatory Bowel Disease, PUD Other Gastrointestinal History: hx colitis Genitourinary History: Reports: UTI, Recurrent Musculoskeletal History: Reports: Arthritis, Back Pain, Chronic, Fracture Other Musculoskeletal History: hx of fx clavicle and finger Neurological History: Reports: Seizure, Other (See Below) Other Neuro History: 15 years ago, passed out while deep breathing (?seizure), 1 month ago, fell asleep while standing up and fell on floor, has been suddenly falling asleep since- some trouble with motion sickness Psychiatric History: Reports: Addiction, Anxiety, Depression, PTSD, Suicidal Ideation Endocrine/Metabolic History: Reports: None Hematologic History: Reports: None Immunologic History: Reports: None Oncologic (Cancer) History: Reports: None Dermatologic History: Reports: None - Infectious Disease History Infectious Disease History: Reports: Measles, Mumps - Past Surgical History Head Surgeries/Procedures: Reports: None HEENT Surgical History: Reports: Cataract Surgery, Detached Retina, Oral Surgery Other HEENT Surgeries/Procedures: has dental posts Cardiovascular Surgical History: Reports: None GI Surgical History: Reports: Colonoscopy, EGD Male Surgical History: Reports: Vasectomy Musculoskeletal Surgical History: Reports: Knee Replacement Other Musculoskeletal Surgeries/Procedures:: bilateral Social & Family History - Family History Family Medical History: No Pertinent Family History - Tobacco Use Tobacco Use Status *Q: Never Tobacco User Second Hand Smoke Exposure: No - Caffeine Use Caffeine Use: Reports: Soda - Alcohol Use Date of Last Drink: 08/18/14 - Recreational Drug Use Recreational Drug Use: No Review of Systems - Review of Systems Review Of Systems: Comprehensive ROS is negative, except as noted in HPI. ED EXAM, GENERAL - Physical Exam Exam: See Below (See dictation) Course - Vital Signs Last Recorded V/S: Last Vital Signs Temp 96.9 F 10/15/20 21:56 Pulse 98 10/15/20 23:45 Resp 18 10/15/20 23:45 BP 142/85 H 10/15/20 23:45 Pulse Ox 96 10/15/20 23:45 - Orders/Labs/Meds Meds: Medications Discontinued Medications Generic Name Dose Route Start Last Admin Trade Name Freq PRN Reason Stop Dose Admin Ketorolac Tromethamine 60 mg 10/15/20 22:30 10/15/20 23:45 Ketorolac 60 Mg/2 Ml Sdv IM 10/15/20 22:31 60 mg ONETIME ONE Administration Departure - Departure Time of Disposition: 23:50 Disposition: Home, Self-Care 01 Condition: Good Clinical Impression: Contusion - Discharge Information *PRESCRIPTION DRUG MONITORING PROGRAM REVIEWED*: Not Applicable *COPY OF PRESCRIPTION DRUG MONITORING REPORT IN PATIENT JAYMIE: Not Applicable Instructions: Contusion, [id number] Referrals: PCP,None [Primary Care Provider] - Forms: ED Department Discharge Additional Instructions: The following information is given to patients seen in the emergency department who are being discharged to home. This information is to outline your options for follow-up care. We provide all patients seen in our emergency department with a follow-up referral. The need for follow-up, as well as the timing and circumstances, are variable depending upon the specifics of your emergency department visit. If you don't have a primary care physician on staff, we will provide you with a referral. We always advise you to contact your personal physician following an emergency department visit to inform them of the circumstance of the visit and for follow-up with them and/or the need for any referrals to a consulting specialist. The emergency department will also refer you to a specialist when appropriate. This referral assures that you have the opportunity for follow-up care with a specialist. All of these measure are taken in an effort to provide you with optimal care, which includes your follow-up. Under all circumstances we always encourage you to contact your private physician who remains a resource for coordinating your care. When calling for follow-up care, please make the office aware that this follow-up is from your recent emergency room visit. If for any reason you are refused follow-up, please contact the [facility] Emergency Department at and asked to speak to the emergency department charge nurse. [facility] [address] [place] [address] [place] [address] Plan: 1. You were evaluated today on an emergent basis. Your thumb swelling and pain was evaluated with a x-ray. And was found not to be fractured but you do have degenerative changes. You can use Motrin for your swelling and discomfort. We treated your pain with a shot of Toradol 60 mg intramuscular. Be sure to follow-up with your primary care as needed. 2. You can alternate Tylenol and ibuprofen as needed for pain and fever management. 3. We encourage you to follow up with your primary care provider and/or recommended specialist in the next few days for re-evaluation and further care/management. 4. If your symptoms should worsen, new symptoms develop or any of the signs and symptoms we discussed should arise please return to the emergency room or call 101 (if needed). Sepsis Event Note (ED) - Evaluation Sepsis Screening Result: No Definite Risk
--- NOTE | 2020-10-15 23:49 | CR ---
Indication: Pain after fall Technique: Three views left hand Comparison: None Findings: Bones: Alignment is normal. No fractures or bone lesions. Joint spaces: Severe degenerative changes at the radiocarpal joint, triscaphe joint and 1st CMC joint. Degenerative changes in the DIP of the 2nd through 5th digits. Soft tissues: Unremarkable. Impression: No acute fracture subluxation. Degenerative changes as described above. Dictated by Mary Mason MD @ 10/15/2020 11:48:[address] Mary Mason @ Oct 15 2020 11:48PM
[2020-10-16 00:03] VITALS: BP 142/85; PULSE 98
== END 2020-10-16 00:03 | disposition home or self-care (01) ==
LOC: MW.ED 19:33
DX: S60.012A Contusion of left thumb without damage to nail, initial encounter (principal); E78.00 Pure hypercholesterolemia, unspecified; Z79.899 Other long term (current) drug therapy; Z88.2 Allergy status to sulfonamides; W18.31XA Fall on same level due to stepping on an object, initial encounter
CPT/HCPCS: 73130; 96372; 99283; J1885

== ENCOUNTER 2021-05-01 14:29 | Emergency (ER) | payer OTHER ==
[2021-05-01 14:43] VITALS: BP 122/71; PULSE 88
== END 2021-05-01 15:48 | disposition home or self-care (01) ==
LOC: MW.ED 14:29
DX: S60.212A Contusion of left wrist, initial encounter (principal); E78.00 Pure hypercholesterolemia, unspecified; Z88.2 Allergy status to sulfonamides; Z79.899 Other long term (current) drug therapy; W18.30XA Fall on same level, unspecified, initial encounter
CPT/HCPCS: 73110-26-LT; 73110-LT; 99283

== ENCOUNTER 2022-04-05 09:36 | Emergency (ER) | payer OTHER ==
[2022-04-05 09:59] VITALS: BP 139/88; PULSE 84
[2022-04-05] MEDS ORDERED: Diphtheria,Pertussis(Acell),Tetanus Vaccine 0.5 ML Syringe IM ONE (10:15)
[2022-04-05] MEDS ORDERED: Lidocaine 1% 5 ML VIAL INJECT STA (10:15)
== END 2022-04-05 12:24 | disposition home or self-care (01) ==
LOC: MW.ED 09:36
DX: S61.452A Open bite of left hand, initial encounter (principal); E78.00 Pure hypercholesterolemia, unspecified; Z23 Encounter for immunization; Z88.2 Allergy status to sulfonamides; Z88.8 Allergy status to other drugs, medicaments and biological substances; Z79.899 Other long term (current) drug therapy; Z86.16 Personal history of COVID-19; W55.01XA Bitten by cat, initial encounter
CPT/HCPCS: 12002; 73130-26-LT; 73130-LT; 90471; 90715; 99283; 99283-25; J3490

== ENCOUNTER 2023-06-20 12:58 | Emergency (ER) | payer OTHER ==
[2023-06-20 15:13] VITALS: BP 145/76; PULSE 89
== END 2023-06-20 15:06 | disposition home or self-care (01) ==
LOC: MW.ED 12:58
DX: M25.551 Pain in right hip (principal); R20.2 Paresthesia of skin; E78.00 Pure hypercholesterolemia, unspecified; Z75.8 Other problems related to medical facilities and other health care; Z88.8 Allergy status to other drugs, medicaments and biological substances; Z88.2 Allergy status to sulfonamides; Z79.899 Other long term (current) drug therapy
CPT/HCPCS: 73552-26-LT; 73552-RT; 93971-26-RT; 93971-RT; 99283; 99284

== ENCOUNTER 2023-10-17 12:35 | Emergency (ER) | payer OTHER ==
[2023-10-17 14:19] VITALS: BP 124/88; PULSE 65
== END 2023-10-17 14:12 | disposition home or self-care (01) ==
LOC: MW.ED 12:35
DX: S20.212A Contusion of left front wall of thorax, initial encounter (principal); E78.00 Pure hypercholesterolemia, unspecified; Z88.6 Allergy status to analgesic agent; Z88.2 Allergy status to sulfonamides; Z88.8 Allergy status to other drugs, medicaments and biological substances; Z79.899 Other long term (current) drug therapy; Z75.8 Other problems related to medical facilities and other health care; W01.0XXA Fall on same level from slipping, tripping and stumbling without subsequent striking against object, initial encounter; Y92.002 Bathroom of unspecified non-institutional (private) residence as the place of occurrence of the external cause
CPT/HCPCS: 71101-26-LT; 71101-LT; 99284

== ENCOUNTER 2024-04-23 10:16 | Emergency (ER) | payer OTHER ==
[2024-04-23 10:39] LABS: BASOPHILS ABSOLUTE AUTO 0.02 K/uL (0.00-0.20); BASOPHILS PERCENT AUTO 0.3 % (0.0-1.0); EOSINOPHILS ABSOLUTE AUTO 0.26 K/uL (0.00-0.45); EOSINOPHILS PERCENT AUTO 4.2 % (0.0-6.0); HEMATOCRIT 43.7 % (42.0-52.0); IMMATURE GRAN ABSOLUTE AUTO 0.01 K/uL (0.00-0.05); IMMATURE GRAN PERCENT AUTO 0.2 % (0.0-0.4); LYMPHOCYTES ABSOLUTE AUTO 1.42 K/uL (1.00-4.80); LYMPHOCYTES PERCENT AUTO 22.7 % (24.0-44.0); MEAN CORPUSCULAR HEMOGLOBIN 31.4 pg (28.0-32.0); MEAN CORPUSCULAR HGB CONC 34.3 g/dL (32.0-36.0); MEAN CORPUSCULAR VOLUME 91.6 fL (83.0-99.0); MEAN PLATELET VOLUME 10.9 fL (9.4-12.4); MONOCYTES ABSOLUTE AUTO 0.42 K/uL (0.00-0.80); MONOCYTES PERCENT AUTO 6.7 % (0.0-8.0); NEUTROPHILS ABSOLUTE AUTO 4.12 K/uL (1.80-7.70); NEUTROPHILS PERCENT AUTO 65.9 % (41.0-71.0); PLATELET COUNT,PLT 144 K/uL (150-400); RED BLOOD CELL COUNT 4.77 M/uL (4.52-5.90); WHITE BLOOD CELL COUNT,WBC 6.25 K/uL (3.9-11.3)
[2024-04-23 11:10] LABS: BILIRUBIN TOTAL 0.5 mg/dL (0.2-1.0); CALCIUM 9.4 mg/dL (8.5-10.1); CREATININE 0.8 mg/dL (0.8-1.3); EST CRCL DRUG DOSING (CG) 87.45 mL/min; MAGNESIUM 1.5 mg/dL (1.8-2.4); POTASSIUM,K 4.5 mmol/L (3.5-5.1); PROTEIN TOTAL,TP 7.9 g/dL (6.4-8.2)
[2024-04-23 11:12] LABS: INR 1.01 (0.86-1.11)
[2024-04-23] MEDS: Magnesium Oxide 400 MG Tab PO STA (11:38)
[2024-04-23 11:41] VITALS: BP 140/102; PULSE 73
== END 2024-04-23 12:12 | disposition home or self-care (01) ==
LOC: MW.ED 10:16
DX: I10 Essential (primary) hypertension (principal); E83.42 Hypomagnesemia; E78.00 Pure hypercholesterolemia, unspecified; R79.89 Other specified abnormal findings of blood chemistry; Z88.6 Allergy status to analgesic agent; Z88.8 Allergy status to other drugs, medicaments and biological substances; Z88.2 Allergy status to sulfonamides; Z79.899 Other long term (current) drug therapy
CPT/HCPCS: 36415; 80053; 83735; 83880; 85025; 85610; 93005; 99283; A9270; 93010